=== PATIENT | male | born 1940 | race Caucasian/White ===

== ENCOUNTER 2018-07-06 16:06 | Inpatient (IN) ==
[2018-07-06] MEDS ORDERED: OXYCODONE Oral CONC 10 MG/0.5 ML ORAL.SYG SL PRN (17:45)
[2018-07-06] MEDS ORDERED: Albuterol Neb 1.25 MG/3 ML VIAL IH PRN (17:45)
[2018-07-06] MEDS ORDERED: Ondansetron ODT 4 MG TAB.RAPDIS SL ONE (18:36)
[2018-07-06] MEDS: Furosemide 40 MG TABLET PO SCH (18:40)
[2018-07-06] MEDS: *HR* Warfarin 5 MG TABLET PO SCH (18:40)
[2018-07-06] MEDS: Metoprolol XL (24 HR) Succ 50 MG TAB.ER.24H PO SCH (20:12)
[2018-07-06] MEDS: Sulfamethoxazole/Trimeth DS 1 EACH TABLET PO SCH (20:12)
[2018-07-06] MEDS: Ipratropium/Albuterol Neb 3 ML IH SCH (20:17)
[2018-07-06] MEDS: Budesonide/Formoterol 160/4.5 1 PUFF INH IH SCH (20:17)
[2018-07-06] MEDS: Melatonin 3 MG TABLET PO PRN (20:51)
[2018-07-06] MEDS ORDERED: NON-FORMULARY MEDICATION 1 EACH EACH (Oxygen [Oxygen] 2 L) NS SCH (21:00)
[2018-07-06] MEDS: Nystatin POWDER 30 GM BOTTLE TP SCH (21:08)
[2018-07-06] MEDS: Ipratropium Neb 0.5 MG NEBULIZER IH SCH (22:24)
[2018-07-06] MEDS: *HR* OxyCODONE/APAP 5/325 TABLET PO PRN (22:46)
[2018-07-07] MEDS: Ipratropium/Albuterol Neb 3 ML IH SCH ×4 (00:23→12:24)
[2018-07-07] MEDS: Ipratropium Neb 0.5 MG NEBULIZER IH SCH ×2 (04:22→08:32)
[2018-07-07] MEDS: *HR* OxyCODONE/APAP 5/325 TABLET PO PRN (06:30)
[2018-07-07] MEDS: Budesonide/Formoterol 160/4.5 1 PUFF INH IH SCH ×2 (08:24→21:42)
[2018-07-07] MEDS: Tiotropium 18 MCG inhalation IH SCH (08:25)
[2018-07-07] MEDS: *HR* Glimepiride 2 MG TABLET PO SCH ×2 (08:57→11:04)
[2018-07-07] MEDS: Diltiazem CD (24hr) 180 MG CAPSULE PO SCH ×2 (08:57→09:15)
[2018-07-07] MEDS: Metoprolol XL (24 HR) Succ 50 MG TAB.ER.24H PO SCH ×3 (08:57→21:47)
[2018-07-07] MEDS: Ondansetron ODT 4 MG TAB.RAPDIS SL PRN (08:57)
[2018-07-07] MEDS: *HR* Metformin 500 MG TABLET PO SCH ×3 (08:57→17:19)
[2018-07-07] MEDS: Sulfamethoxazole/Trimeth DS 1 EACH TABLET PO SCH ×2 (08:57→21:47)
[2018-07-07] MEDS: Finasteride 5 MG TABLET PO SCH (08:58)
[2018-07-07] MEDS: Furosemide 40 MG TABLET PO SCH ×3 (08:58→17:11)
[2018-07-07] MEDS ORDERED: Aspirin Enteric Coated 81 MG Tablet PO SCH (09:00)
[2018-07-07] MEDS: Nystatin POWDER 30 GM BOTTLE TP SCH ×2 (11:03→21:48)
--- NOTE | 2018-07-07 11:26 | Internal Med History&Physical ---
Date of Encounter: 07/07/18 Time of Encounter: 10:55 Assessment and Plan (1) Pneumonia of both lower lobes Current visit: No Status: Acute Continue Bactrim DS through 07/13/2018. Add lactobacillus. Qualifiers: Pneumonia type: due to unspecified organism Qualified Code(s): J18.1 - Lobar pneumonia, unspecified organism (2) HTN (hypertension) Current visit: No Status: Chronic Continue Toprol and Cardizem and monitor blood pressure. Qualifiers: Hypertension type: essential hypertension Qualified Code(s): I10 - Essential (primary) hypertension (3) Atrial fibrillation Current visit: No Status: Chronic Continue Coumadin and monitor PT/INR. Qualifiers: Atrial fibrillation type: chronic Qualified Code(s): I48.2 - Chronic atrial fibrillation (4) CKD (chronic kidney disease) stage 3, GFR 30-59 ml/min Current visit: No Status: Chronic Monitor renal indices. (5) Chronic diastolic heart failure Current visit: No Status: Chronic Continue Toprol and Lasix. (6) T2DM (type 2 diabetes mellitus) Current visit: No Status: Chronic Hemoglobin A1c was 5.6% on 05/24/2018. Continue Amaryl and Glucophage and do Accu-Cheks with SSI. Qualifiers: Diabetes mellitus detention insulin use: with study director use Diabetes mellitus complication status: with kidney complications Diabetes mellitus complication detail: with chronic kidney disease Chronic kidney disease stage: stage 3 (moderate) Qualified Code(s): E11.22 - Type 2 diabetes mellitus with diabetic chronic kidney disease; N18.3 - Chronic kidney disease, stage 3 (moderate); Z79.4 - rn rehab (current) use of insulin (7) Small bowel obstruction Current visit: No Status: Acute Status post surgical intervention. Continue wound VAC and monitoring. (8) Anemia Current visit: No Status: Chronic Anemia testing 06/30/2018 showed iron 26, transferrin saturation 14%, and transferrin 129. Will check B12 and folate in a.m. Start ferrous sulfate with ascorbic acid. Qualifiers: Anemia type: unspecified type Qualified Code(s): D64.9 - Anemia, unspecifi ed Internal Medicine - H&P: HPI Chief complaint: Small bowel obstruction, chronic AF, diastolic heart failure Admitted From: Hospital to Hospital Transfer Plans for Post Hospital Care: Home History of present illness: Mr. Cardoso is a 78 year old male who was hospitalized at [facility] June 12-July 06 after presenting with dyspnea with acute on chronic diastolic heart failure and AF with RVR. He was found to have evidence of small bowel obstruction and underwent exploratory celiotomy with partial small bowel resection with anastomosis and primary repair of incisional/umbilical hernia. He underwent additional surgery June 26 for evidence of recurrent small bowel obstruction and had revision of ileocolonic anastomosis. A wound VAC was placed. Chronic AF was treated with anticoagulants. RVR resolved with medication. He was found to have pneumonia and underwent bronchoscopy with mucous plugs suctioned. BAL was done and cytology sent with report pending at time of discharge. He will continue with Bactrim for 7 days in swing bed for stenotrophomonas on sputum culture. Past Med Surg Social Fam HX - Past Medical History Medical history: asthma, atrial fibrillation, cancer, CHF, COPD, hypertension Additional medical history: Renal carcinoma Psychiatric history: no psych history - Past Surgical History Surgical History: appendectomy, cholecystectomy, other Additional surgical history: left kidney removed. lipomas removed from back - Social History Smoking Status: Former smoker Smokeless Tobacco Status: No Alcohol use: none Drug use: none - Family History Brother Living Status: Hx Family Cardiac Disorders: Yes (60yo [place]) Father Living Status: Hx Family Cardiac Disorders: Yes Hx Family Cancer: Yes Hx Family Neurologic Disorders: Yes (parkinsons) Mother Living Status: Hx Family Cardiac Disorders: Yes Hx Family Respiratory Disorders: Yes (asthma) Hx Family Cancer: Yes Hx Family GI Disorders: No Hx Family Endocrine Disorder: No Hx Family Neuromuscular Disorders: No Hx Family Neurologic Disorders: No Hx Family HEENT Disorders: No Hx Family Autoimmune Disorders: No Internal Medicine - H&P: Meds Albuterol Sulfate [Proair Hfa] 2 puff IH Q4H PRN #0 07/10/15 [History] Finasteride [Proscar] 5 mg PO DAILY #0 07/10/15 [History] Oxygen 2 l NS HS 11/17/16 [History] Budesonide/Formoterol 160/4.5 [Symbicort 160/4.5] 2 puff IH BIDR #2 hfa.aer.ad 11/20/16 [Rx] Aspirin Enteric Coated [Aspirin EC] 81 mg PO DAILY #30 05/12/17 [Rx] Atorvastatin [Lipitor] 40 mg PO HS #30 tab 05/12/17 [Rx] Tiotropium [Spiriva] 18 mcg IH 0700 #30 capsule 08/01/17 [Rx] Albuterol Neb [AccuNeb] 1.25 mg IH Q6H PRN 02/16/18 [History] Diltiazem CD (24hr) [Cardizem CD] 360 mg PO DAILY #30 cap.er.24h 03/20/18 [Rx] Furosemide [Lasix] 40 mg PO BID #28 tablet 03/20/18 [Rx] Glimepiride [Amaryl] 2 mg PO 0800 30 Days #60 tablet 04/15/18 [Rx] metFORMIN [Glucophage] 500 mg PO BIDWM 30 Days #60 tablet 04/15/18 [Rx] Warfarin Sodium 5 mg PO 1800 04/24/18 [History] Sennosides/Docusate Sodium [Senna Plus] 2 each PO BID PRN #60 tablet 06/08/18 [Rx] Ipratropium Neb [Atrovent Neb] 0.5 mg IH [id number] #120 inhsol 06/10/18 [Rx] Metoprolol XL (24 HR) Succ [Toprol Xl] 50 mg PO BID #60 tab.er.24h 06/10/18 [Rx] Polyethylene Glycol 3350 [MiraLAX] 17 gm PO DAILY #30 powd.pack 06/10/18 [Rx] Tamsulosin [Flomax] 0.4 mg PO DAILY #30 capsule 06/10/18 [Rx] Ipratropium/Albuterol Neb [Duoneb] 3 ml IH [id number] inhsol 07/06/18 [Rx] Nystatin POWDER [Nystop] 1 appl TP BID bottle 07/06/18 [Rx] OXYCODONE Oral CONC [Oxycodone Oral Conc] 10 mg SL Q6HR PRN 5 Days #10 oral.syg 07/06/18 [Rx] Omeprazole [PriLOSEC] 20 mg PO DAILY@0630 30 Days #30 capsule.dr 07/06/18 [Rx] OxyCODONE/APAP 5/325 [Percocet 5/325 MG] 1 each PO Q4HR PRN 5 Days #10 tablet 07/06/18 [Rx] Sulfamethoxazole/Trimeth DS [Bactrim Ds] 1 each PO BID 7 Days #14 tablet 07/06/18 [Rx] Allergy/AdvReac Type Severity Reaction Status Date / Time No Known Allergies Allergy Verified 04/24/18 13:29 All Systems PM: A 10-system review of systems was performed and is negative for pertinent findings except as documented above in the HPI. Review of systems: Gen.: His weight has decreased from 112 kg on 07/11/2015 to 109.1 kg on admission to [facility] swing bed 07/06/2018. Cardiovascular: He has history of hypertension and chronic atrial fibrillation. Echocardiogram 05/31/2018 showed LVEF of 50-55%. Previous echocardiogram on 02/22/2018 showed LVEF of 50% with indeterminate diastolic function due to atrial fibrillation. The interventricular septum and posterior wall thickness measurements were 1.1 cm each. There was LAE at 4.40 cm. Mild regurgitation was noted. LHC 04/04/2017 showed nonobstructive CAD with 15% stenosis in LMCA, 25% stenosis in proximal LAD, 30% stenosis in proximal circumflex, 40% stenosis in ramus, 30% stenosis in proximal RCA, 25% stenosis in mid RCA, and 25% stenosis in distal RCA. LVEF was reported to be 45% at time of heart cath. He denies DVT or pulmonary embolus. Respiratory: He smoked from age [age] up to 1-1/2 packs per day. He has a diagnosis COPD and uses oxygen at bedtime and when necessary during the daytime. He thinks he was tested for JEFFY several years ago but does not use CPAP/BiPAP. GI: He had remote cholecystectomy. He had 2 recent surgery for small bowel obstruction as per history of present illness. He denies other disorders of his liver or exocrine pancreas : He had renal cell cancer with left nephrectomy approximately 2011. He believes he is cancer free. He has BPH. He denies other kidney or bladder disorders. Neurologic: He denies large distribution strokes or seizures. Endocrine: He has diagnoses of DM 2 but he denies having this. He is on metformin and Amaryl. He denies hyperlipidemia. TSH was suppressed at 0.133 on 06/02/2018 but free T4 and free T3 were normal. Hematology/oncology: He had renal cell cancer as per above. He denies other internal malignancies. He has anemia with testing 06/30/2018 showing iron 26, transferrin saturation 14%, and transferrin 129. Psychiatric: He denies anxiety depression or other mental health issues [place] skeletal: He denies arthritis gout or other bone joint or muscle disorders. - Constitutional Vitals: Temp Pulse Resp BP Pulse Ox 99 F 108 16 79/48 97 07/07/18 07:00 07/07/18 07:00 07/07/18 08:25 07/07/18 07:00 07/07/18 08:25 Exam: Gen.: He is a well-developed overweight male lying in bed who appears in no acute distress HEENT: Head is atraumatic and normocephalic. Eyes: EOMI. There is no scleral icterus. Mouth: Mucosa is moist. Neck: Supple and nontender. There is no thyromegaly or adenopathy noted. Heart: Irregularly irregular with rate approximately 100/m. Lungs: No wheezes or crackles are heard. Abdomen: A wound VAC is attached to the anterior abdominal wall. The abdomen is nontender to palpation. No masses or guarding are noted. Extremities: There is trace to 1+ edema of the left leg and no edema of the right leg. Dorsalis pedis and posterior tibial pulses are trace palpable bilaterally. He has mild DJD changes of his hands. Neurologic: Mental status: He is talkative and a fair to good historian. He does not remember some details of his history. Cranial nerves: Smile is symmetric. Forehead wrinkles bilaterally. Tongue protrudes midline. EOMI. Motor: There is no pronator drift. He has minimal cogwheeling and rigidity on passive range of motion of his elbows. Cerebellar: Finger to nose is intact bilaterally. Skin: Warm and dry. He has seborrheic dermatitis of his face. He has many subcutaneous lipomas in his arms and some on his abdominal wall.
[2018-07-07] MEDS ORDERED: Albuterol Neb 1.25 MG/3 ML VIAL IH PRN (12:27)
[2018-07-07] MEDS: *HR* Warfarin 5 MG TABLET PO SCH (17:11)
[2018-07-07] MEDS: Sennosides/Docusate Sodium TABLET PO PRN (21:46)
[2018-07-07] MEDS: Lactobacillus 1 EACH CAP.SPRINK PO SCH (21:46)
[2018-07-08 04:57] LABS: Basophils % 0.4 %; Eosinophils # 0.1 K/mcL (0.0-0.6); Eosinophils % 1.1 %; Hematocrit 26.6 % (37.5-50.1); Hemoglobin 8.5 g/dL (12.9-16.9); Immature Granulocytes % 4.6 % (0-4); Lymphocytes # 0.9 K/mcL (0.6-4.6); Lymphocytes % 8.4 %; Mean Platelet Volume 10.7 fL (9.4-12.4); Monocytes # 0.6 K/mcL (0.0-1.3); Monocytes % 5.7 %; Neutrophils # 8.3 K/mcL (1.6-8.9); Nucleated Red Blood Cells 0.2 /100 WBC (0); Platelet Count 199 K/mcL (140-400); Red Blood Count 2.83 M/mcL (4.19-5.50); Red Cell Distribution Width 15.2 % (11.5-14.5); Segmented Neutrophils % 79.8 %
[2018-07-08 05:18] LABS: Prothrombin Time 34.2 Seconds (9.4-12.1)
[2018-07-08 05:22] LABS: BUN/Creatinine Ratio 8 (6-26); Blood Urea Nitrogen 13 mg/dL (8-23); Calcium 8.2 mg/dL (8.6-10.3); Carbon Dioxide 30 mEq/L (23-29); Chloride 97 mEq/L (98-107); Glucose 77 mg/dL (70-105); Osmolality,Calculated 277 (280-300); Potassium 4.5 mEq/L (3.5-5.1); Sodium 134 mEq/L (136-145); eGFR For Non-African Americans 40 (> 60)
[2018-07-08] MEDS ORDERED: D5% in Water 1,000 ML IVC PRN (06:05)
[2018-07-08] MEDS ORDERED: Dextrose Gel 15 GM/37.5 ML TUBE PO PRN ×2 (06:05)
[2018-07-08] MEDS ORDERED: *HR* Dextrose 50 % in Water (Syg) 50 ML SYRINGE IVP PRN (06:05)
[2018-07-08] MEDS: Ascorbic Acid 500 MG TABLET PO SCH (06:49)
[2018-07-08] MEDS: Ondansetron ODT 4 MG TAB.RAPDIS SL PRN ×3 (06:53→21:34)
[2018-07-08] MEDS ORDERED: *HR* OxyCODONE Oral Soln 5 MG/5 ML UD.LIQ PO PRN (08:30)
[2018-07-08] MEDS: Insulin LISPRO 300 UNITS/3 ML VIAL SQ SCH ×4 (08:36→21:36)
[2018-07-08] MEDS: Diltiazem CD (24hr) 180 MG CAPSULE PO SCH (08:37)
[2018-07-08] MEDS: *HR* Metformin 500 MG TABLET PO SCH ×2 (08:37→17:24)
[2018-07-08] MEDS: Sulfamethoxazole/Trimeth DS 1 EACH TABLET PO SCH ×2 (08:38→21:34)
[2018-07-08] MEDS: Lactobacillus 1 EACH CAP.SPRINK PO SCH ×2 (08:38→21:34)
[2018-07-08] MEDS: Nystatin POWDER 30 GM BOTTLE TP SCH ×2 (08:39→21:39)
[2018-07-08] MEDS: Finasteride 5 MG TABLET PO SCH (08:40)
[2018-07-08] MEDS: Budesonide/Formoterol 160/4.5 1 PUFF INH IH SCH ×2 (09:12→22:04)
[2018-07-08] MEDS: Tiotropium 18 MCG inhalation IH SCH ×2 (09:12→09:18)
[2018-07-08 10:23] LABS: Ferritin > 1500 ng/mL (20-250)
--- NOTE | 2018-07-08 11:16 | Internal Med Progress Note ---
Date of Encounter: 07/08/18 Time of Encounter: 11:10 - Assessment and plan (1) Pneumonia of both lower lobes Current Visit: No Status: Acute Assessment and plan: July 08. Continue Bactrim DS with lactobacillus through 07/13/2018. Qualifiers: Pneumonia type: due to unspecified organism Qualified Code(s): J18.1 - Lobar pneumonia, unspecified organism (2) HTN (hypertension) Current Visit: No Status: Chronic Assessment and plan: July 08. He has hypotension. Cardizem will be held. Lanoxin will be started for rate control. Qualifiers: Hypertension type: essential hypertension Qualified Code(s): I10 - Essenti al (primary) hypertension (3) Atrial fibrillation Current Visit: No Status: Chronic Assessment and plan: July 08. Continue Coumadin but reduce dose from 5 mg daily to 4 mg daily since INR is now 3.0. Qualifiers: Atrial fibrillation type: chronic Qualified Code(s): I48.2 - Chronic atrial fibrillation (4) CKD (chronic kidney disease) stage 3, GFR 30-59 ml/min Current Visit: No Status: Chronic Assessment and plan: July 08. Monitor renal indices. (5) Chronic diastolic heart failure Current Visit: No Status: Chronic Assessment and plan: July 08. Continue Lasix. Start Lanoxin. (6) T2DM (type 2 diabetes mellitus) Current Visit: No Status: Chronic Assessment and plan: July 08. Hemoglobin A1c was 5.6% on 05/24/2018. Continue Amaryl and Gl ucophage and do Accu-Cheks with SSI. Qualifiers: Diabetes mellitus care home insulin use: with terminal block assembler use Diabetes mellitus complication status: with kidney complications Diabetes mellitus complication detail: with chronic kidney disease Chronic kidney disease stage: stage 3 (moderate) Qualified Code(s): E11.22 - Type 2 diabetes mellitus with diabetic chronic kidney disease; N18.3 - Chronic kidney disease, stage 3 (moderate); Z79.4 - superintendent container terminal (current) use of insulin (7) Small bowel obstruction Current Visit: No Status: Acute Assessment and plan: July 08. Status post surgical intervention. Continue wound VAC and monitoring. (8) Anemia Current Visit: No Status: Chronic Assessment and plan: July 08. Anemia testing 06/30/2018 showed iron 26, transferrin saturation 14%, and transferrin 129. Labs today show ferritin > 1500, B12 710, and folate 14.0. Continue trial of ferrous sulfate with ascorbic acid and monitor CBC. Qualifiers: Anemia type: unspecified type Qualified Code(s): D64.9 - Anemia, unspecified - Subjective Interval history: July 08. He has no new complaints and feels well. - Constitutional Vitals: Temp Pulse Resp BP Pulse Ox 99.7 F H 86 16 78/44 95 07/08/18 06:28 07/08/18 06:28 07/08/18 09:13 07/08/18 06:28 07/08/18 09:13 Exam: He is sitting on the side of bed participating in therapy. His affect is bright and cheerful. Medium yellow urine is draining in the Mancini bag. I reviewed his medications and lab results. Internal Medicine: Result - Labs CBC & Chem 7: 07/08/18 04:48 07/08/18 04:48 Labs: Short CBC 07/08/18 Range/Units 04:48 WBC 10.4 (4.3-11.1) K/mcL Hgb 8.5 L (12.9-16.9) g/dL Hct 26.6 L (37.5-50.1) % Plt Count 199 (140-400) K/mcL Neutrophils # 8.3 (1.6-8.9) K/mcL BMP 07/08/18 04:48 Sodium 134 L Potassium 4.5 Chloride 97 L Carbon Dioxide 30 H BUN 13 Creatinine 1.69 H Glucose 77 Calcium 8.2 L - ABG Interpretation ABG results: PT/INR, D-dimer PT 34.2 Seconds (9.4-12.1) H 07/08/18 04:48 Consult Discharge Plan - Plan Referrals: Booker Atkins MD [Primary Care Provider] - 1 week
[2018-07-08] MEDS: *HR* Glimepiride 2 MG TABLET PO SCH (12:26)
[2018-07-08] MEDS: Metoprolol XL (24 HR) Succ 50 MG TAB.ER.24H PO SCH ×2 (12:27→21:39)
[2018-07-08] MEDS: Furosemide 40 MG TABLET PO SCH ×2 (12:27→17:24)
[2018-07-08] MEDS ORDERED: *HR* Warfarin 5 MG TABLET ONE (16:29)
[2018-07-08] MEDS: *HR* Warfarin 2 MG TABLET PO SCH (17:23)
[2018-07-08] MEDS: Melatonin 3 MG TABLET PO PRN (21:34)
[2018-07-08] MEDS: Albuterol 2.5 MG/3 ML NEBULIZER IH PRN (22:03)
[2018-07-09] MEDS: Ascorbic Acid 500 MG TABLET PO SCH (06:47)
[2018-07-09] MEDS: *HR* Metformin 500 MG TABLET PO SCH ×2 (08:10→16:29)
[2018-07-09] MEDS: Finasteride 5 MG TABLET PO SCH (08:11)
[2018-07-09] MEDS: *HR* Digoxin 0.125 MG TABLET PO SCH (08:11)
[2018-07-09] MEDS: Lactobacillus 1 EACH CAP.SPRINK PO SCH ×2 (08:11→21:45)
[2018-07-09] MEDS: Metoprolol XL (24 HR) Succ 50 MG TAB.ER.24H PO SCH (08:11)
[2018-07-09] MEDS: Furosemide 40 MG TABLET PO SCH ×2 (08:12→16:29)
[2018-07-09] MEDS: Sulfamethoxazole/Trimeth DS 1 EACH TABLET PO SCH ×2 (08:12→21:45)
[2018-07-09] MEDS: *HR* Glimepiride 2 MG TABLET PO SCH (08:17)
[2018-07-09] MEDS: Insulin LISPRO 300 UNITS/3 ML VIAL SQ SCH ×4 (08:17→21:44)
[2018-07-09] MEDS: Nystatin POWDER 30 GM BOTTLE TP SCH ×2 (08:18→21:00)
[2018-07-09] MEDS: Tiotropium 18 MCG inhalation IH SCH (10:32)
[2018-07-09] MEDS: Budesonide/Formoterol 160/4.5 1 PUFF INH IH SCH ×2 (10:33→22:12)
--- NOTE | 2018-07-09 12:35 | Internal Med Progress Note ---
Date of Encounter: 07/09/18 Time of Encounter: 12:25 - Assessment and plan (1) Pneumonia of both lower lobes Current Visit: No Status: Acute Assessment and plan: July 08. Continue Bactrim DS with lactobacillus through 07/13/2018. Qualifiers: Pneumonia type: due to unspecified organism Qualified Code(s): J18.1 - Lobar pneumonia, unspecified organism (2) HTN (hypertension) Current Visit: No Status: Chronic Assessment and plan: July 08. He has hypotension. Cardizem will be held. Lanoxin will be started for rate control. July 09. Hypotension resolved. Remain off Cardizem. Continue Lanoxin and lower dose metoprolol. Qualifiers: Hypertension type: essential hypertension Qualified Code(s): I10 - Esse ntial (primary) hypertension (3) Atrial fibrillation Current Visit: No Status: Chronic Assessment and plan: July 08. Continue Coumadin but reduce dose from 5 mg daily to 4 mg daily since INR is now 3.0. Qualifiers: Atrial fibrillation type: chronic Qualified Code(s): I48.2 - Chronic atrial fibrillation (4) CKD (chronic kidney disease) stage 3, GFR 30-59 ml/min Current Visit: No Status: Chronic Assessment and plan: July 08. Monitor renal indices. (5) Chronic diastolic heart failure Current Visit: No Status: Chronic Assessment and plan: July 08. Continue Lasix. Start Lanoxin. (6) T2DM (type 2 diabetes mellitus) Current Visit: No Status: Chronic Assessment and plan: July 08. Hemoglobin A1c was 5.6% on 05/24/2018. Continue Amaryl and Glucophage and do Accu-Cheks with SSI. July 09. Accu-Cheks borderline low at times. Decrease Amaryl. Qualifiers: Diabetes mellitus retirement insulin use: with retirement use Diabetes mellitus complication status: with kidney complications Diabetes mellitus complication detail: with chronic kidney disease Chronic kidney disease stage: stage 3 (moderate) Qualified Code(s): E11.22 - Type 2 diabetes mellitus with diabetic chronic kidney disease; N18.3 - Chronic kidney disease, stage 3 (moderate); Z79.4 - [facility]DC (current) use of insulin (7) Small bowel obstruction Current Visit: No Status: Acute Assessment and plan: July 08. Status post surgical intervention. Continue wound VAC and monitoring. (8) Anemia Current Visit: No Status: Chronic Assessment and plan: July 08. Anemia testing 06/30/2018 showed iron 26, transferrin saturation 14%, and transferrin 129. Labs today show ferritin > 1500, B12 710, and folate 14.0. Continue trial of ferrous sulfate with ascorbic acid and monitor CBC. Qualifiers: Anemia type: unspecified type Qualified Code(s): D64.9 - Anemia, unspecified (9) Low vitamin D level Current Visit: Yes Status: Acute Assessment and plan: Vitamin D level low at 12. Start vitamin D supplement. - Subjective Interval history: July 08. He has no new complaints and feels well. July 09. He has no new complaints. He denies pain or dyspnea. - Constitutional Vitals: Temp Pulse Resp BP Pulse Ox 97.6 F 106 14 109/72 96 07/09/18 10:19 07/09/18 10:19 07/09/18 10:37 07/09/18 10:19 07/09/18 10:37 Exam: He is resting comfortably in bed and appears in no acute distress. His affect is overall cheerful. Extremities show no edema. Reviewed his medications and lab results. Internal Medicine: Result - Labs CBC & Chem 7: 07/08/18 04:48 07/08/18 04:48 - ABG Interpretation ABG results: PT/INR, D-dimer PT 34.2 Seconds (9.4-12.1) H 07/08/18 04:48 Consult Discharge Plan - Plan Referrals: Booker Atkins MD [Primary Care Provider] - 1 week
[2018-07-09] MEDS: *HR* Warfarin 2 MG TABLET PO SCH (16:33)
[2018-07-09] MEDS: Albuterol 2.5 MG/3 ML NEBULIZER IH PRN (22:12)
[2018-07-09] MEDS: Melatonin 3 MG TABLET PO PRN (23:55)
[2018-07-10] MEDS: Ascorbic Acid 500 MG TABLET PO SCH (07:00)
[2018-07-10] MEDS: Insulin LISPRO 300 UNITS/3 ML VIAL SQ SCH ×4 (08:34→20:51)
[2018-07-10] MEDS: Sulfamethoxazole/Trimeth DS 1 EACH TABLET PO SCH ×2 (08:36→20:50)
[2018-07-10] MEDS: Furosemide 40 MG TABLET PO SCH ×2 (08:37→17:17)
[2018-07-10] MEDS: *HR* Glimepiride 2 MG TABLET PO SCH (08:38)
[2018-07-10] MEDS: Metoprolol XL (24 HR) Succ 50 MG TAB.ER.24H PO SCH (08:39)
[2018-07-10] MEDS: *HR* Metformin 500 MG TABLET PO SCH ×2 (08:39→17:17)
[2018-07-10] MEDS: *HR* Digoxin 0.125 MG TABLET PO SCH (08:39)
[2018-07-10] MEDS: Lactobacillus 1 EACH CAP.SPRINK PO SCH ×2 (08:40→20:50)
[2018-07-10] MEDS: Finasteride 5 MG TABLET PO SCH (08:41)
[2018-07-10] MEDS: Cholecalciferol (D-3) 1,000 UNIT TABLET PO SCH (08:45)
[2018-07-10] MEDS: Nystatin POWDER 30 GM BOTTLE TP SCH ×2 (10:18→20:51)
[2018-07-10] MEDS: Tiotropium 18 MCG inhalation IH SCH (10:33)
[2018-07-10] MEDS: Budesonide/Formoterol 160/4.5 1 PUFF INH IH SCH ×2 (10:34→22:44)
--- NOTE | 2018-07-10 12:41 | Internal Med Progress Note ---
Date of Encounter: 07/10/18 Time of Encounter: 12:35 - Assessment and plan (1) Pneumonia of both lower lobes Current Visit: No Status: Acute Assessment and plan: July 08. Continue Bactrim DS with lactobacillus through 07/13/2018. Qualifiers: Pneumonia type: due to unspecified organism Qualified Code(s): J18.1 - Lobar pneumonia, unspecified organism (2) HTN (hypertension) Current Visit: No Status: Chronic Assessment and plan: July 08. He has hypotension. Cardizem will be held. Lanoxin will be started for rate control. July 09. Hypotension resolved. Remain off Cardizem. Continue Lanoxin and lower dose metoprolol. Qualifiers: Hypertension type: essential hypertension Qualified Code(s): I10 - Esse ntial (primary) hypertension (3) Atrial fibrillation Current Visit: No Status: Chronic Assessment and plan: July 08. Continue Coumadin but reduce dose from 5 mg daily to 4 mg daily since INR is now 3.0. July 10. Recheck labs in a.m. Qualifiers: Atrial fibrillation type: chronic Qualified Code(s): I48.2 - Chronic atrial fibrillation (4) CKD (chronic kidney disease) stage 3, GFR 30-59 ml/min Current Visit: No Status: Chronic Assessment and plan: July 08. Monitor renal indices. July 10. Recheck labs in a.m. (5) Chronic diastolic heart failure Current Visit: No Status: Chronic Assessment and plan: July 08. Continue Lasix. Start Lanoxin. (6) T2DM (type 2 diabetes mellitus) Current Visit: No Status: Chronic Assessment and plan: July 08. Hemoglobin A1c was 5.6% on 05/24/2018. Continue Amaryl and Glucophage and do Accu-Cheks with SSI. July 09. Accu-Cheks borderline low at times. Decrease Amaryl. Qualifiers: Diabetes mellitus snf insulin use: with snf use Diabetes mellitus complication status: with kidney complications Diabetes mellitus complication detail: with chronic kidney disease Chronic kidney disease stage: stage 3 (moderate) Qualified Code(s): E11.22 - Type 2 diabetes mellitus with diabetic chronic kidney disease; N18.3 - Chronic kidney disease, stage 3 ( moderate); Z79.4 - correction (current) use of insulin (7) Small bowel obstruction Current Visit: No Status: Acute Assessment and plan: July 08. Status post surgical intervention. Continue wound VAC and monitoring. (8) Anemia Current Visit: No Status: Chronic Assessment and plan: July 08. Anemia testing 06/30/2018 showed iron 26, transferrin saturation 14%, and transferrin 129. Labs today show ferritin > 1500, B12 710, and folate 14.0. Continue trial of ferrous sulfate with ascorbic acid and monitor CBC. July 10. Recheck labs in a.m. Qualifiers: Anemia type: unspecified type Qualified Code(s): D64.9 - Anemia, unspecified (9) Low vitamin D level Current Visit: Yes Status: Acute Assessment and plan: July 09. Vitamin D level low at 12. Start vitamin D supplement. - Subjective Interval history: July 08. He has no new complaints and feels well. July 09. He has no new complaints. He denies pain or dyspnea. July 10. He has no complaints. He feels he is making progress and getting stronger. - Constitutional Vitals: Temp Pulse Resp BP Pulse Ox 98.1 F 100 16 106/70 99 07/10/18 09:04 07/10/18 09:04 07/10/18 10:34 07/10/18 09:04 07/10/18 10:34 Exam: He is resting comfortably in bed and appears in no acute distress. His affect is bright and cheerful. I reviewed his medications and lab results. Internal Medicine: Result - Labs CBC & Chem 7: 07/08/18 04:48 07/08/18 04:48 - ABG Interpretation ABG results: PT/INR, D-dimer PT 34.2 Seconds (9.4-12.1) H 07/08/18 04:48 Consult Discharge Plan - Plan Referrals: Booker Atkins MD [Primary Care Provider] - 1 week
[2018-07-10] MEDS: *HR* Warfarin 2 MG TABLET PO SCH (17:18)
[2018-07-10] MEDS: Melatonin 3 MG TABLET PO PRN (22:00)
[2018-07-10] MEDS: Albuterol 2.5 MG/3 ML NEBULIZER IH PRN (22:44)
[2018-07-11 05:13] LABS: Basophils # 0.1 K/mcL (0.0-0.2); Basophils % 0.7 %; Eosinophils # 0.2 K/mcL (0.0-0.6); Eosinophils % 2.3 %; Hematocrit 26.6 % (37.5-50.1); Hemoglobin 8.4 g/dL (12.9-16.9); Immature Granulocytes % 4.4 % (0-4); Lymphocytes # 1.1 K/mcL (0.6-4.6); Lymphocytes % 14.6 %; Mean Corpuscular HGB Conc 31.6 g/dL (31.6-35.5); Mean Corpuscular Hemoglobin 29.9 pg (28.0-33.3); Mean Corpuscular Volume 94.7 fL (83.0-100.0); Mean Platelet Volume 10.4 fL (9.4-12.4); Monocytes # 0.5 K/mcL (0.0-1.3); Monocytes % 7.4 %; Neutrophils # 5.1 K/mcL (1.6-8.9); Platelet Count 200 K/mcL (140-400); Red Blood Count 2.81 M/mcL (4.19-5.50); Red Cell Distribution Width 15.2 % (11.5-14.5); Segmented Neutrophils % 70.6 %
[2018-07-11 05:25] LABS: Prothrombin Time 51.4 Seconds (9.4-12.1)
[2018-07-11 05:26] LABS: INR 4.6
[2018-07-11 05:35] LABS: Calcium 7.8 mg/dL (8.6-10.3); Digoxin 0.4 ng/mL (0.8-2.0); Magnesium 1.4 mg/dL (1.6-2.6); Potassium 4.1 mEq/L (3.5-5.1)
[2018-07-11 05:53] LABS: Thyroid Stimulating Hormone 3.518 mcIU/mL (0.340-5.600)
[2018-07-11] MEDS: Ascorbic Acid 500 MG TABLET PO SCH (06:00)
[2018-07-11] MEDS: Tiotropium 18 MCG inhalation IH SCH (09:15)
[2018-07-11] MEDS: Budesonide/Formoterol 160/4.5 1 PUFF INH IH SCH ×2 (09:15→21:51)
[2018-07-11] MEDS: Nystatin POWDER 30 GM BOTTLE TP SCH ×2 (09:50→21:00)
[2018-07-11] MEDS: Finasteride 5 MG TABLET PO SCH (09:54)
[2018-07-11] MEDS: Cholecalciferol (D-3) 1,000 UNIT TABLET PO SCH (09:54)
[2018-07-11] MEDS: Magnesium Oxide 400 MG TABLET PO SCH ×2 (09:55→21:19)
[2018-07-11] MEDS: Lactobacillus 1 EACH CAP.SPRINK PO SCH ×2 (09:55→21:19)
[2018-07-11] MEDS: Sulfamethoxazole/Trimeth DS 1 EACH TABLET PO SCH ×2 (09:55→21:19)
[2018-07-11] MEDS: Metoprolol XL (24 HR) Succ 50 MG TAB.ER.24H PO SCH (09:55)
[2018-07-11] MEDS: *HR* Digoxin 0.125 MG TABLET PO SCH (09:55)
[2018-07-11] MEDS: Furosemide 40 MG TABLET PO SCH ×2 (09:56→16:25)
[2018-07-11] MEDS: *HR* Metformin 500 MG TABLET PO SCH ×2 (09:56→16:25)
[2018-07-11] MEDS: Insulin LISPRO 300 UNITS/3 ML VIAL SQ SCH ×4 (09:56→21:19)
[2018-07-11] MEDS: *HR* Glimepiride 2 MG TABLET PO SCH (10:27)
[2018-07-11] MEDS: Warfarin perPT PO SCH (16:23)
[2018-07-11] MEDS: Melatonin 3 MG TABLET PO PRN (21:19)
[2018-07-11] MEDS: Albuterol 2.5 MG/3 ML NEBULIZER IH PRN (21:51)
[2018-07-12] MEDS: Ascorbic Acid 500 MG TABLET PO SCH (06:11)
[2018-07-12] MEDS: Insulin LISPRO 300 UNITS/3 ML VIAL SQ SCH ×4 (07:14→21:25)
[2018-07-12] MEDS: Budesonide/Formoterol 160/4.5 1 PUFF INH IH SCH ×2 (09:21→21:56)
[2018-07-12] MEDS: Tiotropium 18 MCG inhalation IH SCH (09:22)
[2018-07-12] MEDS: *HR* Glimepiride 2 MG TABLET PO SCH (09:48)
[2018-07-12] MEDS: Sulfamethoxazole/Trimeth DS 1 EACH TABLET PO SCH ×2 (09:49→21:25)
[2018-07-12] MEDS: Lactobacillus 1 EACH CAP.SPRINK PO SCH ×2 (09:49→21:25)
[2018-07-12] MEDS: *HR* Metformin 500 MG TABLET PO SCH ×2 (09:49→16:36)
[2018-07-12] MEDS: Furosemide 40 MG TABLET PO SCH ×2 (09:49→16:36)
[2018-07-12] MEDS: *HR* Digoxin 0.125 MG TABLET PO SCH (09:50)
[2018-07-12] MEDS: Magnesium Oxide 400 MG TABLET PO SCH ×2 (09:50→21:25)
[2018-07-12] MEDS: Finasteride 5 MG TABLET PO SCH (09:51)
[2018-07-12] MEDS: Metoprolol XL (24 HR) Succ 50 MG TAB.ER.24H PO SCH (09:51)
[2018-07-12] MEDS: Cholecalciferol (D-3) 1,000 UNIT TABLET PO SCH (09:52)
[2018-07-12] MEDS: Nystatin POWDER 30 GM BOTTLE TP SCH ×2 (09:54→21:25)
--- NOTE | 2018-07-12 13:09 | Internal Med Progress Note ---
Date of Encounter: 07/12/18 Time of Encounter: 13:00 - Assessment and plan (1) Pneumonia of both lower lobes Current Visit: No Status: Acute Assessment and plan: July 08. Continue Bactrim DS with lactobacillus through 07/13/2018. Qualifiers: Pneumonia type: due to unspecified organism Qualified Code(s): J18.1 - Lobar pneumonia, unspecified organism (2) HTN (hypertension) Current Visit: No Status: Chronic Assessment and plan: July 08. He has hypotension. Cardizem will be held. Lanoxin will be started for rate control. July 09. Hypotension resolved. Remain off Cardizem. Continue Lanoxin and lower dose metoprolol. Qualifiers: Hypertension type: essential hypertension Qualified Code(s): I10 - Esse ntial (primary) hypertension (3) Atrial fibrillation Current Visit: No Status: Chronic Assessment and plan: July 08. Continue Coumadin but reduce dose from 5 mg daily to 4 mg daily since INR is now 3.0. July 10. Recheck labs in a.m. July 12. INR was elevated at 4.6 yesterday. Recheck labs in a.m. Qualifiers: Atrial fibrillation type: chronic Qualified Code(s): I48.2 - Chronic atrial fibrillation (4) CKD (chronic kidney disease) stage 3, GFR 30-59 ml/min Current Visit: No Status: Chronic Assessment and plan: July 08. Monitor renal indices. July 10. Recheck labs in a.m. (5) Chronic diastolic heart failure Current Visit: No Status: Chronic Assessment and plan: July 08. Continue Lasix. Start Lanoxin. (6) T2DM (type 2 diabetes mellitus) Current Visit: No Status: Chronic Assessment and plan: July 08. Hemoglobin A1c was 5.6% on 05/24/2018. Continue Amaryl and Glucophage and do Accu-Cheks with SSI. July 09. Accu-Cheks borderline low at times. Decrease Amaryl. July 12. Accu-Cheks satisfactory. Continue present dose Amaryl and metformin. Qualifiers: Diabetes mellitus watermelon inspector insulin use: with long-term use Diabetes mellitus complication status: with kidney complications Diabetes mellitus complication detail: with chronic kidney disease Chronic kidney disease stage: stage 3 (moderate) Qualified Code(s): E11.22 - Type 2 diabetes mellitus with diabetic chronic kidney disease; N18.3 - Chronic kidney disease, stage 3 (moderate); Z79.4 - technician terminal and repeater (current) use of insulin (7) Small bowel obstruction Current Visit: No Status: Acute Assessment and plan: July 08. Status post surgical intervention. Continue wound VAC and monitoring. (8) Anemia Current Visit: No Status: Chronic Assessment and plan: July 08. Anemia testing 06/30/2018 showed iron 26, transferrin saturation 14%, and transferrin 129. Labs today show ferritin > 1500, B12 710, and folate 14.0. Continue trial of ferrous sulfate with ascorbic acid and monitor CBC. July 10. Recheck labs in a.m. Qualifiers: Anemia type: unspecified type Qualified Code(s): D64.9 - Anemia, unspecified (9) Low vitamin D level Current Visit: Yes Status: Acute Assessment and plan: July 09. Vitamin D level low at 12. Start vitamin D supplement. - Subjective Interval history: July 08. He has no new complaints and feels well. July 09. He has no new complaints. He denies pain or dyspnea. July 10. He has no complaints. He feels he is making progress and getting stronger. July 12. He has no new complaints. - Constitutional Vitals: Temp Pulse Resp BP Pulse Ox 98.3 F 98 20 110/72 96 07/12/18 12:56 07/12/18 12:56 07/12/18 12:56 07/12/18 12:56 07/12/18 12:56 Exam: He is resting comfortably in bed and appears in no acute distress. His affect is bright and cheerful. His conversation is appropriate. I reviewed his medications and lab results. Internal Medicine: Result - Labs CBC & Chem 7: 07/11/18 05:03 07/11/18 05:03 - ABG Interpretation ABG results: PT/INR, D-dimer PT 51.4 Seconds (9.4-12.1) H* D 07/11/18 05:03 Consult Discharge Plan - Plan Referrals: Booker Atkins MD [Primary Care Provider] - 1 week
[2018-07-12] MEDS: Warfarin perPT PO SCH (16:34)
[2018-07-12] MEDS: Albuterol 2.5 MG/3 ML NEBULIZER IH PRN (17:44)
[2018-07-12] MEDS: Melatonin 3 MG TABLET PO PRN (21:27)
[2018-07-13] MEDS: Ascorbic Acid 500 MG TABLET PO SCH (05:55)
[2018-07-13 06:06] LABS: Prothrombin Time 23.1 Seconds (9.4-12.1)
[2018-07-13] MEDS: Cholecalciferol (D-3) 1,000 UNIT TABLET PO SCH (08:59)
[2018-07-13] MEDS: Lactobacillus 1 EACH CAP.SPRINK PO SCH (09:00)
[2018-07-13] MEDS: *HR* Glimepiride 2 MG TABLET PO SCH (09:00)
[2018-07-13] MEDS: Magnesium Oxide 400 MG TABLET PO SCH ×2 (09:00→21:21)
[2018-07-13] MEDS: Sulfamethoxazole/Trimeth DS 1 EACH TABLET PO SCH (09:00)
[2018-07-13] MEDS: Metoprolol XL (24 HR) Succ 50 MG TAB.ER.24H PO SCH (09:00)
[2018-07-13] MEDS: *HR* Metformin 500 MG TABLET PO SCH ×2 (09:00→16:59)
[2018-07-13] MEDS: Furosemide 40 MG TABLET PO SCH ×2 (09:00→16:59)
[2018-07-13] MEDS: *HR* Digoxin 0.125 MG TABLET PO SCH (09:00)
[2018-07-13] MEDS: Nystatin POWDER 30 GM BOTTLE TP SCH ×2 (09:01→21:21)
[2018-07-13] MEDS: Insulin LISPRO 300 UNITS/3 ML VIAL SQ SCH ×4 (09:01→21:21)
[2018-07-13] MEDS: Finasteride 5 MG TABLET PO SCH (09:01)
[2018-07-13] MEDS: Budesonide/Formoterol 160/4.5 1 PUFF INH IH SCH ×2 (10:21→21:25)
[2018-07-13] MEDS: Tiotropium 18 MCG inhalation IH SCH (10:23)
[2018-07-13] MEDS: *HR* Warfarin 3 MG TABLET PO SCH (16:59)
[2018-07-14] MEDS: Ascorbic Acid 500 MG TABLET PO SCH (06:39)
[2018-07-14] MEDS: Insulin LISPRO 300 UNITS/3 ML VIAL SQ SCH ×4 (08:38→20:04)
[2018-07-14] MEDS: *HR* Metformin 500 MG TABLET PO SCH ×2 (08:38→17:11)
[2018-07-14] MEDS: Cholecalciferol (D-3) 1,000 UNIT TABLET PO SCH (08:38)
[2018-07-14] MEDS: Magnesium Oxide 400 MG TABLET PO SCH ×2 (08:39→20:03)
[2018-07-14] MEDS: *HR* Glimepiride 2 MG TABLET PO SCH (08:39)
[2018-07-14] MEDS: Furosemide 40 MG TABLET PO SCH ×2 (08:39→17:11)
[2018-07-14] MEDS: Nystatin POWDER 30 GM BOTTLE TP SCH ×2 (08:39→20:04)
[2018-07-14] MEDS: *HR* Digoxin 0.125 MG TABLET PO SCH (08:39)
[2018-07-14] MEDS: Metoprolol XL (24 HR) Succ 50 MG TAB.ER.24H PO SCH (08:39)
[2018-07-14] MEDS: Finasteride 5 MG TABLET PO SCH (08:40)
[2018-07-14] MEDS: Budesonide/Formoterol 160/4.5 1 PUFF INH IH SCH ×2 (09:58→20:20)
[2018-07-14] MEDS: Tiotropium 18 MCG inhalation IH SCH (09:59)
--- NOTE | 2018-07-14 12:45 | Internal Med Progress Note ---
Date of Encounter: 07/14/18 Time of Encounter: 12:38 - Assessment and plan (1) Pneumonia of both lower lobes Current Visit: No Status: Acute Assessment and plan: July 08. Continue Bactrim DS with lactobacillus through 07/13/2018. July 14. Now off antibiotic and probiotic. Continue to monitor. Qualifiers: Pneumonia type: due to unspecified organism Qualified Code(s): J18.1 - Lobar pneumonia, unspecified organism (2) HTN (hypertension) Current Visit: No Status: Chronic Assessment and plan: July 08. He has hypotension. Cardizem will be held. Lanoxin will be started for rate control. July 09. Hypotension resolved. Remain off Cardizem. Continue Lanoxin and lower dose metoprolol. July 14. Blood pressure again borderline low. Reduce metoprolol. Continue Lanoxin. Qualifiers: Hypertension type: essential hypertension Qualified Code(s): I10 - Essential (primary) hypertension (3) Atrial fibrillation Current Visit: No Status: Chronic Assessment and plan: July 08. Continue Coumadin but reduce dose from 5 mg daily to 4 mg daily since INR is now 3.0. July 10. Recheck labs in a.m. July 12. INR was elevated at 4.6 yesterday. Recheck labs in a.m. July 14. Coumadin restarted yesterday a dose of 3 mg daily. Recheck labs in a.m. Qualifiers: Atrial fibrillation type: chronic Qualified Code(s): I48.2 - Chronic atrial fibrillation (4) CKD (chronic kidney disease) stage 3, GFR 30-59 ml/min Current Visit: No Status: Chronic Assessment and plan: July 08. Monitor renal indices. July 10. Recheck labs in a.m. July 14. Recheck labs in a.m. (5) Chronic diastolic heart failure Current Visit: No Status: Chronic Assessment and plan: July 08. Continue Lasix. Start Lanoxin. (6) T2DM (type 2 diabetes mellitus) Current Visit: No Status: Chronic Assessment and plan: July 08. Hemoglobin A1c was 5.6% on 05/24/2018. Continue Amaryl and Glucophage and do Accu-Cheks with SSI. July 09. Accu-Cheks borderline low at times. Decrease Amaryl. July 12. Accu-Cheks satisfactory. Continue present dose Amaryl and metformin. Qualifiers: Diabetes mellitus ammunition components inspector insulin use: with skilled nursing use Diabetes mellitus complication status: with kidney complications Diabetes mellitus complication detail: with chronic kidney disease Chronic kidney disease stage: stage 3 (moderate) Qualified Code(s): E11.22 - Type 2 diabetes mellitus with diabetic chronic kidney disease; N18.3 - Chronic kidney disease, stage 3 (moderate); Z79.4 - user experience researcher (current) use of insulin (7) Small bowel obstruction Current Visit: No Status: Acute Assessment and plan: July 08. Status post surgical intervention. Continue wound VAC and monitoring. (8) Anemia Current Visit: No Status: Chronic Assessment and plan: July 08. Anemia testing 06/30/2018 showed iron 26, transferrin saturation 14 %, and transferrin 129. Labs today show ferritin > 1500, B12 710, and folate 14.0. Continue trial of ferrous sulfate with ascorbic acid and monitor CBC. July 10. Recheck labs in a.m. July 14. Recheck labs in a.m. Qualifiers: Anemia type: unspecified type Qualified Code(s): D64.9 - Anemia, unspecified (9) Low vitamin D level Current Visit: Yes Status: Acute Assessment and plan: July 09. Vitamin D level low at 12. Start vitamin D supplement. July 14. Continue vitamin D supplement (10) Hypomagnesemia Current Visit: No Status: Acute Assessment and plan: July 14. Continue magnesium oxide. Recheck labs in a.m. - Subjective Interval history: July 08. He has no new complaints and feels well. July 09. He has no new complaints. He denies pain or dyspnea. July 10. He has no complaints. He feels he is making progress and getting stronger. July 12. He has no new complaints. July 14. He has no new complaints - Constitutional Vitals: Temp Pulse Resp BP Pulse Ox 99.3 F 67 14 107/64 98 07/14/18 07:00 07/14/18 07:00 07/14/18 09:58 07/14/18 07:00 07/14/18 09:58 Exam: He is resting comfortably in bed and appears in no acute distress. His affect is bright and cheerful. I reviewed his medications and lab results. Internal Medicine: Result - Labs CBC & Chem 7: 07/11/18 05:03 07/11/18 05:03 - ABG Interpretation ABG results: PT/INR, D-dimer PT 23.1 Seconds (9.4-12.1) H D 07/13/18 05:00 Consult Discharge Plan - Plan Referrals: Booker Atkins MD [Primary Care Provider] - 1 week
[2018-07-14] MEDS: *HR* Warfarin 3 MG TABLET PO SCH (17:11)
[2018-07-14] MEDS: Melatonin 3 MG TABLET PO PRN (20:03)
[2018-07-14] MEDS: Albuterol 2.5 MG/3 ML NEBULIZER IH PRN (20:21)
[2018-07-15] MEDS: Ascorbic Acid 500 MG TABLET PO SCH (06:03)
[2018-07-15 06:05] LABS: Basophils % 0.7 %; Eosinophils # 0.2 K/mcL (0.0-0.6); Eosinophils % 3.7 %; Hemoglobin 8.9 g/dL (12.9-16.9); Immature Granulocytes % 1.1 % (0-4); Lymphocytes # 1.2 K/mcL (0.6-4.6); Lymphocytes % 18.9 %; Mean Corpuscular HGB Conc 30.7 g/dL (31.6-35.5); Mean Corpuscular Hemoglobin 29.4 pg (28.0-33.3); Mean Corpuscular Volume 95.7 fL (83.0-100.0); Mean Platelet Volume 10.7 fL (9.4-12.4); Monocytes # 0.5 K/mcL (0.0-1.3); Monocytes % 8.3 %; Neutrophils # 4.1 K/mcL (1.6-8.9); Platelet Count 190 K/mcL (140-400); Red Blood Count 3.03 M/mcL (4.19-5.50); Red Cell Distribution Width 15.2 % (11.5-14.5); Segmented Neutrophils % 67.3 %
[2018-07-15 06:25] LABS: Calcium 8.5 mg/dL (8.6-10.3); Potassium 4.2 mEq/L (3.5-5.1)
[2018-07-15] MEDS: Insulin LISPRO 300 UNITS/3 ML VIAL SQ SCH ×4 (08:00→20:34)
[2018-07-15] MEDS: Budesonide/Formoterol 160/4.5 1 PUFF INH IH SCH ×2 (09:15→22:36)
[2018-07-15] MEDS: Tiotropium 18 MCG inhalation IH SCH (09:16)
[2018-07-15] MEDS: *HR* Glimepiride 2 MG TABLET PO SCH (09:24)
[2018-07-15] MEDS: Furosemide 40 MG TABLET PO SCH ×2 (09:24→16:42)
[2018-07-15] MEDS: *HR* Metformin 500 MG TABLET PO SCH ×2 (09:25→16:42)
[2018-07-15] MEDS: Cholecalciferol (D-3) 1,000 UNIT TABLET PO SCH (09:26)
[2018-07-15] MEDS: Magnesium Oxide 400 MG TABLET PO SCH ×2 (09:26→20:35)
[2018-07-15] MEDS: *HR* Digoxin 0.125 MG TABLET PO SCH (09:26)
[2018-07-15] MEDS: Finasteride 5 MG TABLET PO SCH (09:28)
[2018-07-15] MEDS: Metoprolol XL (24 HR) Succ 50 MG TAB.ER.24H PO SCH (09:28)
[2018-07-15] MEDS: Nystatin POWDER 30 GM BOTTLE TP SCH ×2 (09:50→20:40)
[2018-07-15] MEDS: *HR* Warfarin 3 MG TABLET PO SCH (16:41)
[2018-07-15] MEDS: Melatonin 3 MG TABLET PO PRN (20:35)
[2018-07-15] MEDS: Albuterol 2.5 MG/3 ML NEBULIZER IH PRN (22:36)
[2018-07-16] MEDS: Ascorbic Acid 500 MG TABLET PO SCH (05:32)
[2018-07-16] MEDS: Insulin LISPRO 300 UNITS/3 ML VIAL SQ SCH ×4 (08:58→21:09)
[2018-07-16] MEDS: Budesonide/Formoterol 160/4.5 1 PUFF INH IH SCH ×2 (09:14→21:21)
[2018-07-16] MEDS: Tiotropium 18 MCG inhalation IH SCH (09:14)
[2018-07-16] MEDS: *HR* Metformin 500 MG TABLET PO SCH ×2 (11:21→17:40)
[2018-07-16] MEDS: *HR* Glimepiride 2 MG TABLET PO SCH (11:21)
[2018-07-16] MEDS: Magnesium Oxide 400 MG TABLET PO SCH ×2 (11:22→21:09)
[2018-07-16] MEDS: Furosemide 40 MG TABLET PO SCH ×2 (11:23→17:40)
[2018-07-16] MEDS: Metoprolol XL (24 HR) Succ 50 MG TAB.ER.24H PO SCH (11:23)
[2018-07-16] MEDS: *HR* Digoxin 0.125 MG TABLET PO SCH (11:23)
[2018-07-16] MEDS: Cholecalciferol (D-3) 1,000 UNIT TABLET PO SCH (11:23)
[2018-07-16] MEDS: Nystatin POWDER 30 GM BOTTLE TP SCH ×2 (11:24→21:10)
[2018-07-16] MEDS: Finasteride 5 MG TABLET PO SCH (11:24)
[2018-07-16] MEDS: *HR* Warfarin 3 MG TABLET PO SCH (17:40)
[2018-07-16] MEDS: Melatonin 3 MG TABLET PO PRN (21:09)
[2018-07-16] MEDS: Albuterol 2.5 MG/3 ML NEBULIZER IH PRN (21:21)
[2018-07-17] MEDS: Ascorbic Acid 500 MG TABLET PO SCH (05:36)
[2018-07-17 06:00] LABS: Basophils % 0.6 %; Eosinophils # 0.2 K/mcL (0.0-0.6); Eosinophils % 4.1 %; Hemoglobin 8.4 g/dL (12.9-16.9); Immature Granulocytes % 1.4 % (0-4); Lymphocytes # 1.1 K/mcL (0.6-4.6); Lymphocytes % 21.9 %; Mean Corpuscular HGB Conc 31.1 g/dL (31.6-35.5); Mean Corpuscular Hemoglobin 29.4 pg (28.0-33.3); Mean Corpuscular Volume 94.4 fL (83.0-100.0); Mean Platelet Volume 10.9 fL (9.4-12.4); Monocytes # 0.5 K/mcL (0.0-1.3); Monocytes % 9.5 %; Neutrophils # 3.2 K/mcL (1.6-8.9); Platelet Count 145 K/mcL (140-400); Red Blood Count 2.86 M/mcL (4.19-5.50); Red Cell Distribution Width 14.9 % (11.5-14.5); Segmented Neutrophils % 62.5 %
[2018-07-17 06:08] LABS: INR 1.3
[2018-07-17 06:18] LABS: BUN/Creatinine Ratio 12 (6-26); Blood Urea Nitrogen 13 mg/dL (8-23); Calcium 8.3 mg/dL (8.6-10.3); Carbon Dioxide 31 mEq/L (23-29); Chloride 100 mEq/L (98-107); Glucose 102 mg/dL (70-105); Osmolality,Calculated 284 (280-300); Potassium 3.9 mEq/L (3.5-5.1); Sodium 137 mEq/L (136-145); eGFR For Non-African Americans > 60 (> 60)
[2018-07-17] MEDS: Insulin LISPRO 300 UNITS/3 ML VIAL SQ SCH ×4 (08:05→21:34)
[2018-07-17] MEDS: *HR* Glimepiride 2 MG TABLET PO SCH (08:06)
[2018-07-17] MEDS: *HR* Metformin 500 MG TABLET PO SCH ×2 (08:26→16:25)
[2018-07-17] MEDS: Magnesium Oxide 400 MG TABLET PO SCH (08:27)
[2018-07-17] MEDS: *HR* Digoxin 0.125 MG TABLET PO SCH (08:27)
[2018-07-17] MEDS: Finasteride 5 MG TABLET PO SCH (08:28)
[2018-07-17] MEDS: Cholecalciferol (D-3) 1,000 UNIT TABLET PO SCH (08:31)
[2018-07-17] MEDS: Furosemide 40 MG TABLET PO SCH ×2 (10:22→16:25)
[2018-07-17] MEDS: Metoprolol XL (24 HR) Succ 50 MG TAB.ER.24H PO SCH (10:22)
[2018-07-17] MEDS: Nystatin POWDER 30 GM BOTTLE TP SCH ×2 (10:23→21:58)
[2018-07-17] MEDS: Tiotropium 18 MCG inhalation IH SCH (10:45)
[2018-07-17] MEDS: Budesonide/Formoterol 160/4.5 1 PUFF INH IH SCH ×2 (10:46→22:29)
--- NOTE | 2018-07-17 10:57 | Internal Med Progress Note ---
Date of Encounter: 07/17/18 Time of Encounter: 10:50 - Assessment and plan (1) Pneumonia of both lower lobes Current Visit: No Status: Acute Assessment and plan: July 08. Continue Bactrim DS with lactobacillus through 07/13/2018. July 14. Now off antibiotic and probiotic. Continue to monitor. Qualifiers: Pneumonia type: due to unspecified organism Qualified Code(s): J18.1 - Lobar pneumonia, unspecified organism (2) HTN (hypertension) Current Visit: No Status: Chronic Assessment and plan: July 08. He has hypotension. Cardizem will be held. Lanoxin will be started for rate control. July 09. Hypotension resolved. Remain off Cardizem. Continue Lanoxin and lower dose metoprolol. July 14. Blood pressure again borderline low. Reduce metoprolol. Continue Lanoxin. Qualifiers: Hypertension type: essential hypertension Qualified Code(s): I10 - Essential (primary) hypertension (3) Atrial fibrillation Current Visit: No Status: Chronic Assessment and plan: July 08. Continue Coumadin but reduce dose from 5 mg daily to 4 mg daily since INR is now 3.0. July 10. Recheck labs in a.m. July 12. INR was elevated at 4.6 yesterday. Recheck labs in a.m. July 14. Coumadin restarted yesterday a dose of 3 mg daily. Recheck labs in a.m. July 17. Heart rate generally well controlled. Continue metoprolol and Lanoxin. Increase Coumadin dose back to 5 mg daily since off antibiotics and pro time subtherapeutic. Qualifiers: Atrial fibrillation type: chronic Qualified Code(s): I48.2 - Chronic atrial fibrillation (4) CKD (chronic kidney disease) stage 3, GFR 30-59 ml/min Current Visit: No Status: Chronic Assessment and plan: July 08. Monitor renal indices. July 10. Recheck labs in a.m. July 14. Recheck labs in a.m. July 17. Creatinine decreased to 1.13. Continue present regimen. (5) Chronic diastolic heart failure Current Visit: No Status: Chronic Assessment and plan: July 08. Continue Lasix. Start Lanoxin. July 17. BN peptide improved to 163. Continue present regimen. (6) T2DM (type 2 diabetes mellitus) Current Visit: No Status: Chronic Assessment and plan: July 08. Hemoglobin A1c was 5.6% on 05/24/2018. Continue Amaryl and Glucophage and do Accu-Cheks with SSI. July 09. Accu-Cheks borderline low at times. Decrease Amaryl. July 12. Accu-Cheks satisfactory. Continue present dose Amaryl and metformin. Qualifiers: Diabetes mellitus nursing home insulin use: with manager long term care use Diabetes mellitus complication status: with kidney complications Diabetes mellitus complication detail: with chronic kidney disease Chronic kidney disease stage: stage 3 (moderate) Qualified Code(s): E11.22 - Type 2 diabetes mellitus with diabetic chronic kidney disease; N18.3 - Chronic kidney disease, stage 3 (moderate); Z79.4 - marine oil terminal superintendent (current) use of insulin (7) Small bowel obstruction Current Visit: No Status: Acute Assessment and plan: July 08. Status post surgical intervention. Continue wound VAC and monitoring. (8) Anemia Current Visit: No Status: Chronic Assessment and plan: July 08. Anemia testing 06/30/2018 showed iron 26, transferrin saturation 14%, and transferrin 129. Labs today show ferritin > 1500, B12 710, and folate 14.0. Continue trial of ferrous sulfate with ascorbic acid and monitor CBC. July 10. Recheck labs in a.m. July 14. Recheck labs in a.m. July 17. Hemoglobin slightly decreased to 8.4. Continue ferrous sulfate with ascorbic acid. Qualifiers: Anemia type: unspecified type Qualified Code(s): D64.9 - Anemia, unspecified (9) Low vitamin D level Current Visit: Yes Status: Acute Assessment and plan: July 09. Vitamin D level low at 12. Start vitamin D supplement. July 14. Continue vitamin D supplement (10) Hypomagnesemia Current Visit: No Status: Acute Assessment and plan: July 14. Continue magnesium oxide. Recheck labs in a.m. July 17. Magnesium level 2.2. Decrease dose of magnesium oxide to 400 mg daily. - Subjective Interval history: July 08. He has no new complaints and feels well. July 09. He has no new complaints. He denies pain or dyspnea. July 10. He has no complaints. He feels he is making progress and getting stronger. July 12. He has no new complaints. July 14. He has no new complaints July 17. He has no new complaints and feels improved. - Constitutional Vitals: Temp Pulse Resp BP Pulse Ox 98.6 F 101 19 94/58 99 07/17/18 06:54 07/17/18 08:22 07/17/18 06:54 07/17/18 08:22 07/17/18 08:22 Exam: He is resting comfortably in bed and appears in no acute distress. His affect is bright and cheerful. Extremities show no edema. I reviewed his medications and lab results. Internal Medicine: Result - Labs CBC & Chem 7: 07/17/18 05:35 07/17/18 05:35 Labs: Short CBC 07/17/18 Range/Units 05:35 WBC 5.2 (4.3-11.1) K/mcL Hgb 8.4 L (12.9-16.9) g/dL Hct 27.0 L (37.5-50.1) % Plt Count 145 (140-400) K/mcL Neutrophils # 3.2 (1.6-8.9) K/mcL BMP 07/17/18 05:35 Sodium 137 Potassium 3.9 Chloride 100 Carbon Dioxide 31 H BUN 13 Creatinine 1.13 Glucose 102 Calcium 8.3 L - ABG Interpretation ABG results: PT/INR, D-dimer PT 15.0 Seconds (9.4-12.1) H 07/17/18 05:35 Consult Discharge Plan - Plan Referrals: Booker Atkins MD [Primary Care Provider] - 1 week
[2018-07-17] MEDS: *HR* Warfarin 5 MG TABLET PO SCH (18:08)
[2018-07-18] MEDS: Ascorbic Acid 500 MG TABLET PO SCH (06:20)
[2018-07-18] MEDS: *HR* Glimepiride 2 MG TABLET PO SCH (08:07)
[2018-07-18] MEDS: *HR* Metformin 500 MG TABLET PO SCH ×2 (08:07→18:06)
[2018-07-18] MEDS: Furosemide 40 MG TABLET PO SCH ×2 (08:11→18:06)
[2018-07-18] MEDS: Insulin LISPRO 300 UNITS/3 ML VIAL SQ SCH ×4 (08:11→20:48)
[2018-07-18] MEDS: *HR* Digoxin 0.125 MG TABLET PO SCH (09:55)
[2018-07-18] MEDS: Magnesium Oxide 400 MG TABLET PO SCH (09:56)
[2018-07-18] MEDS: Nystatin POWDER 30 GM BOTTLE TP SCH ×2 (09:57→20:50)
[2018-07-18] MEDS: Finasteride 5 MG TABLET PO SCH (09:59)
[2018-07-18] MEDS: Metoprolol XL (24 HR) Succ 50 MG TAB.ER.24H PO SCH (10:00)
[2018-07-18] MEDS: Cholecalciferol (D-3) 1,000 UNIT TABLET PO SCH (10:01)
[2018-07-18] MEDS: Tiotropium 18 MCG inhalation IH SCH (10:42)
[2018-07-18] MEDS: Budesonide/Formoterol 160/4.5 1 PUFF INH IH SCH ×2 (10:43→23:19)
[2018-07-18] MEDS: *HR* Warfarin 5 MG TABLET PO SCH (18:06)
[2018-07-18] MEDS: Melatonin 3 MG TABLET PO PRN (20:51)
[2018-07-18] MEDS: Albuterol 2.5 MG/3 ML NEBULIZER IH PRN (23:19)
[2018-07-19] MEDS: Ascorbic Acid 500 MG TABLET PO SCH (05:43)
[2018-07-19] MEDS: Insulin LISPRO 300 UNITS/3 ML VIAL SQ SCH ×4 (08:03→20:17)
[2018-07-19] MEDS: *HR* Metformin 500 MG TABLET PO SCH ×2 (08:10→16:42)
[2018-07-19] MEDS: Furosemide 40 MG TABLET PO SCH ×2 (08:16→16:42)
[2018-07-19] MEDS: *HR* Glimepiride 2 MG TABLET PO SCH (08:17)
[2018-07-19] MEDS: *HR* Digoxin 0.125 MG TABLET PO SCH (09:36)
[2018-07-19] MEDS: Magnesium Oxide 400 MG TABLET PO SCH (09:37)
[2018-07-19] MEDS: Nystatin POWDER 30 GM BOTTLE TP SCH ×2 (09:38→20:17)
[2018-07-19] MEDS: Finasteride 5 MG TABLET PO SCH (09:39)
[2018-07-19] MEDS: Cholecalciferol (D-3) 1,000 UNIT TABLET PO SCH (09:40)
[2018-07-19] MEDS: Metoprolol XL (24 HR) Succ 50 MG TAB.ER.24H PO SCH (09:41)
[2018-07-19] MEDS: Budesonide/Formoterol 160/4.5 1 PUFF INH IH SCH ×2 (10:51→22:07)
[2018-07-19] MEDS: Tiotropium 18 MCG inhalation IH SCH (10:51)
[2018-07-19] MEDS: *HR* Warfarin 5 MG TABLET PO SCH (16:42)
[2018-07-19] MEDS: Melatonin 3 MG TABLET PO PRN (20:17)
[2018-07-19] MEDS: Albuterol 2.5 MG/3 ML NEBULIZER IH PRN (22:06)
[2018-07-20] MEDS: Ascorbic Acid 500 MG TABLET PO SCH (05:32)
[2018-07-20 05:54] LABS: Basophils % 0.6 %; Eosinophils # 0.2 K/mcL (0.0-0.6); Eosinophils % 4.3 %; Hematocrit 29.9 % (37.5-50.1); Hemoglobin 9.4 g/dL (12.9-16.9); Immature Granulocytes % 0.6 % (0-4); Lymphocytes # 1.3 K/mcL (0.6-4.6); Lymphocytes % 25.9 %; Mean Corpuscular HGB Conc 31.4 g/dL (31.6-35.5); Mean Corpuscular Hemoglobin 29.5 pg (28.0-33.3); Mean Corpuscular Volume 93.7 fL (83.0-100.0); Monocytes # 0.5 K/mcL (0.0-1.3); Monocytes % 9.8 %; Neutrophils # 2.9 K/mcL (1.6-8.9); Platelet Count 144 K/mcL (140-400); Red Blood Count 3.19 M/mcL (4.19-5.50); Red Cell Distribution Width 14.7 % (11.5-14.5); Segmented Neutrophils % 58.8 %
[2018-07-20 06:09] LABS: BUN/Creatinine Ratio 14 (6-26); Blood Urea Nitrogen 17 mg/dL (8-23); Calcium 8.7 mg/dL (8.6-10.3); Carbon Dioxide 33 mEq/L (23-29); Chloride 101 mEq/L (98-107); Glucose 91 mg/dL (70-105); Osmolality,Calculated 289 (280-300); Potassium 3.9 mEq/L (3.5-5.1); Sodium 139 mEq/L (136-145); eGFR For Non-African Americans 58 (> 60)
[2018-07-20] MEDS: *HR* Glimepiride 2 MG TABLET PO SCH ×2 (07:36→09:56)
[2018-07-20] MEDS: Insulin LISPRO 300 UNITS/3 ML VIAL SQ SCH ×4 (07:36→21:10)
[2018-07-20] MEDS: Magnesium Oxide 400 MG TABLET PO SCH (08:15)
[2018-07-20] MEDS: Metoprolol XL (24 HR) Succ 50 MG TAB.ER.24H PO SCH (08:15)
[2018-07-20] MEDS: *HR* Metformin 500 MG TABLET PO SCH ×2 (08:16→16:55)
[2018-07-20] MEDS: Cholecalciferol (D-3) 1,000 UNIT TABLET PO SCH (08:16)
[2018-07-20] MEDS: Furosemide 40 MG TABLET PO SCH ×2 (08:16→16:55)
[2018-07-20] MEDS: Finasteride 5 MG TABLET PO SCH (08:17)
[2018-07-20] MEDS: Nystatin POWDER 30 GM BOTTLE TP SCH ×2 (08:17→21:12)
[2018-07-20] MEDS: *HR* Digoxin 0.125 MG TABLET PO SCH (08:18)
[2018-07-20] MEDS: Budesonide/Formoterol 160/4.5 1 PUFF INH IH SCH ×2 (14:08→20:05)
[2018-07-20] MEDS: Tiotropium 18 MCG inhalation IH SCH (14:08)
--- NOTE | 2018-07-20 16:52 | Internal Med Progress Note ---
Date of Encounter: 07/20/18 Time of Encounter: 16:30 - Assessment and plan (1) Pneumonia of both lower lobes Current Visit: No Status: Acute Assessment and plan: July 08. Continue Bactrim DS with lactobacillus through 07/13/2018. July 14. Now off antibiotic and probiotic. Continue to monitor. Qualifiers: Pneumonia type: due to unspecified organism Qualified Code(s): J18.1 - Lobar pneumonia, unspecified organism (2) HTN (hypertension) Current Visit: No Status: Chronic Assessment and plan: July 08. He has hypotension. Cardizem will be held. Lanoxin will be started for rate control. July 09. Hypotension resolved. Remain off Cardizem. Continue Lanoxin and lower dose metoprolol. July 14. Blood pressure again borderline low. Reduce metoprolol. Continue Lanoxin. Qualifiers: Hypertension type: essential hypertension Qualified Code(s): I10 - Essential (primary) hypertension (3) Atrial fibrillation Current Visit: No Status: Chronic Assessment and plan: July 08. Continue Coumadin but reduce dose from 5 mg daily to 4 mg daily since INR is now 3.0. July 10. Recheck labs in a.m. July 12. INR was elevated at 4.6 yesterday. Recheck labs in a.m. July 14. Coumadin restarted yesterday a dose of 3 mg daily. Recheck labs in a.m. July 17. Heart rate generally well controlled. Continue metoprolol and Lanoxin. Increase Coumadin dose back to 5 mg daily since off antibiotics and pro time subtherapeutic. July 20. Heart rate remains controlled. Continue metoprolol and Lanoxin at present dose. Recheck PT/INR in a.m. Qualifiers: Atrial fibrillation type: chronic Qualified Code(s): I48.2 - Chronic atrial fibrillation (4) CKD (chronic kidney disease) stage 3, GFR 30-59 ml/min Current Visit: No Status: Chronic Assessment and plan: July 08. Monitor renal indices. July 10. Recheck labs in a.m. July 14. Recheck labs in a.m. July 17. Creatinine decreased to 1.13. Continue present regimen. (5) Chronic diastolic heart failure Current Visit: No Status: Chronic Assessment and plan: July 08. Continue Lasix. Start Lanoxin. July 17. BN peptide improved to 163. Continue present regimen. (6) T2DM (type 2 diabetes mellitus) Current Visit: No Status: Chronic Assessment and plan: July 08. Hemoglobin A1c was 5.6% on 05/24/2018. Continue Amaryl and Glucophage and do Accu-Cheks with SSI. July 09. Accu-Cheks borderline low at times. Decrease Amaryl. July 12. Accu-Cheks satisfactory. Continue present dose Amaryl and metformin. Qualifiers: Diabetes mellitus [facility] insulin use: with [facility] use Diabetes mellitus complication status: with kidney complications Diabetes mellitus complication detail: with chronic kidney disease Chronic kidney disease stage: stage 3 (moderate) Qualified Code(s): E11.22 - Type 2 diabetes mellitus with diabetic chronic kidney disease; N18.3 - Chronic kidney disease, stage 3 (moderate); Z79.4 - penitentiary (current) use of insulin (7) Small bowel obstruction Current Visit: No Status: Acute Assessment and plan: July 08. Status post surgical intervention. Continue wound VAC and monitoring. (8) Anemia Current Visit: No Status: Chronic Assessment and plan: July 08. Anemia testing 06/30/2018 showed iron 26, transferrin saturation 14%, and transferrin 129. Labs today show ferritin > 1500, B12 710, and folate 14.0. Continue trial of ferrous sulfate with ascorbic acid and monitor CBC. July 10. Recheck labs in a.m. July 14. Recheck labs in a.m. July 17. Hemoglobin slightly decreased to 8.4. Continue ferrous sulfate with ascorbic acid. July 20. Hemoglobin improved to 9.4. Continue ferrous sulfate with ascorbic acid. Qualifiers: Anemia type: unspecified type Qualified Code(s): D64.9 - Anemia, unspecifi ed (9) Low vitamin D level Current Visit: Yes Status: Acute Assessment and plan: July 09. Vitamin D level low at 12. Start vitamin D supplement. July 14. Continue vitamin D supplement (10) Hypomagnesemia Current Visit: No Status: Acute Assessment and plan: July 14. Continue magnesium oxide. Recheck labs in a.m. July 17. Magnesium level 2.2. Decrease dose of magnesium oxide to 400 mg daily. July 20. Recheck labs in a.m. (11) Urinary retention Current Visit: Yes Status: Acute Assessment and plan: July 20. Mancini catheter was inserted last week and he was started on Flomax and Proscar. Will trial discontinuation of Mancini catheter. - Subjective Interval history: July 08. He has no new complaints and feels well. July 09. He has no new complaints. He denies pain or dyspnea. July 10. He has no complaints. He feels he is making progress and getting stronger. July 12. He has no new complaints. July 14. He has no new complaints July 17. He has no new complaints and feels improved. July 20. He has no new complaints. - Constitutional Vitals: Temp Pulse Resp BP Pulse Ox 97.1 F L 86 18 106/65 100 07/20/18 07:10 07/20/18 07:10 07/20/18 07:10 07/20/18 07:10 07/20/18 07:10 Exam: He is resting comfortably in bed and appears in no acute distress. His affect is bright and cheerful. Extremities show no edema. I reviewed his medications and lab results. Internal Medicine: Result - Labs CBC & Chem 7: 07/20/18 05:17 07/20/18 05:17 Labs: Short CBC 07/20/18 Range/Units 05:17 WBC 4.9 (4.3-11.1) K/mcL Hgb 9.4 L (12.9-16.9) g/dL Hct 29.9 L (37.5-50.1) % Plt Count 144 (140-400) K/mcL Neutrophils # 2.9 (1.6-8.9) K/mcL BMP 07/20/18 05:17 Sodium 139 Potassium 3.9 Chloride 101 Carbon Dioxide 33 H BUN 17 Creatinine 1.21 Glucose 91 Calcium 8.7 - ABG Interpretation ABG results: PT/INR, D-dimer PT 15.0 Seconds (9.4-12.1) H 07/17/18 05:35 Consult Discharge Plan - Plan Referrals: Booker Atkins MD [Primary Care Provider] - 1 week
[2018-07-20] MEDS: *HR* Warfarin 5 MG TABLET PO SCH (17:02)
[2018-07-20] MEDS: Albuterol 2.5 MG/3 ML NEBULIZER IH PRN (20:04)
[2018-07-20] MEDS: Sennosides/Docusate Sodium TABLET PO PRN (21:11)
[2018-07-21] MEDS: Ascorbic Acid 500 MG TABLET PO SCH (05:58)
[2018-07-21 05:59] LABS: INR 1.8; Prothrombin Time 20.5 Seconds (9.4-12.1)
[2018-07-21 06:07] LABS: BUN/Creatinine Ratio 16 (6-26); Blood Urea Nitrogen 19 mg/dL (8-23); Calcium 8.7 mg/dL (8.6-10.3); Carbon Dioxide 31 mEq/L (23-29); Chloride 103 mEq/L (98-107); Glucose 127 mg/dL (70-105); Magnesium 2.1 mg/dL (1.6-2.6); Osmolality,Calculated 298 (280-300); Potassium 4.1 mEq/L (3.5-5.1); Sodium 142 mEq/L (136-145); eGFR For Non-African Americans > 60 (> 60)
[2018-07-21] MEDS: Insulin LISPRO 300 UNITS/3 ML VIAL SQ SCH ×4 (07:19→21:36)
[2018-07-21] MEDS: *HR* Glimepiride 2 MG TABLET PO SCH (07:22)
[2018-07-21] MEDS: *HR* Metformin 500 MG TABLET PO SCH ×2 (07:22→17:11)
[2018-07-21] MEDS: Furosemide 40 MG TABLET PO SCH ×2 (07:22→17:11)
[2018-07-21] MEDS: *HR* Digoxin 0.125 MG TABLET PO SCH (08:21)
[2018-07-21] MEDS: Metoprolol XL (24 HR) Succ 50 MG TAB.ER.24H PO SCH (08:22)
[2018-07-21] MEDS: Cholecalciferol (D-3) 1,000 UNIT TABLET PO SCH (08:24)
[2018-07-21] MEDS: Magnesium Oxide 400 MG TABLET PO SCH (08:24)
[2018-07-21] MEDS: Finasteride 5 MG TABLET PO SCH (08:24)
[2018-07-21] MEDS: Nystatin POWDER 30 GM BOTTLE TP SCH ×2 (08:25→21:06)
[2018-07-21] MEDS: Tiotropium 18 MCG inhalation IH SCH (11:34)
[2018-07-21] MEDS: Budesonide/Formoterol 160/4.5 1 PUFF INH IH SCH ×2 (11:34→21:37)
[2018-07-21] MEDS: *HR* Warfarin 5 MG TABLET PO SCH (17:11)
[2018-07-21] MEDS: Albuterol 2.5 MG/3 ML NEBULIZER IH PRN (21:37)
[2018-07-22] MEDS: Ascorbic Acid 500 MG TABLET PO SCH (06:16)
[2018-07-22] MEDS: Cholecalciferol (D-3) 1,000 UNIT TABLET PO SCH (09:02)
[2018-07-22] MEDS: *HR* Glimepiride 2 MG TABLET PO SCH (09:02)
[2018-07-22] MEDS: *HR* Digoxin 0.125 MG TABLET PO SCH (09:02)
[2018-07-22] MEDS: *HR* Metformin 500 MG TABLET PO SCH ×2 (09:02→18:01)
[2018-07-22] MEDS: Furosemide 40 MG TABLET PO SCH ×2 (09:02→18:01)
[2018-07-22] MEDS: Magnesium Oxide 400 MG TABLET PO SCH (09:03)
[2018-07-22] MEDS: Metoprolol XL (24 HR) Succ 50 MG TAB.ER.24H PO SCH (09:03)
[2018-07-22] MEDS: Finasteride 5 MG TABLET PO SCH (09:04)
[2018-07-22] MEDS: Insulin LISPRO 300 UNITS/3 ML VIAL SQ SCH ×4 (09:04→20:55)
[2018-07-22] MEDS: Nystatin POWDER 30 GM BOTTLE TP SCH ×2 (09:05→20:56)
[2018-07-22] MEDS: Budesonide/Formoterol 160/4.5 1 PUFF INH IH SCH ×2 (09:35→21:24)
[2018-07-22] MEDS: Tiotropium 18 MCG inhalation IH SCH (09:36)
--- NOTE | 2018-07-22 12:26 | Internal Med Progress Note ---
Date of Encounter: 07/22/18 Time of Encounter: 12:16 - Assessment and plan (1) Pneumonia of both lower lobes Current Visit: No Status: Acute Assessment and plan: July 08. Continue Bactrim DS with lactobacillus through 07/13/2018. July 14. Now off antibiotic and probiotic. Continue to monitor. Qualifiers: Pneumonia type: due to unspecified organism Qualified Code(s): J18.1 - Lobar pneumonia, unspecified organism (2) HTN (hypertension) Current Visit: No Status: Chronic Assessment and plan: July 08. He has hypotension. Cardizem will be held. Lanoxin will be started for rate control. July 09. Hypotension resolved. Remain off Cardizem. Continue Lanoxin and lower dose metoprolol. July 14. Blood pressure again borderline low. Reduce metoprolol. Continue Lanoxin. July 22. Blood pressure overall stable on present dose Toprol. Qualifiers: Hypertension type: essential hypertension Qualified Code(s): I10 - Essential (primary) hypertension (3) Atrial fibrillation Current Visit: No Status: Chronic Assessment and plan: July 08. Continue Coumadin but reduce dose from 5 mg daily to 4 mg daily since INR is now 3.0. July 10. Recheck labs in a.m. July 12. INR was elevated at 4.6 yesterday. Recheck labs in a.m. July 14. Coumadin restarted yesterday a dose of 3 mg daily. Recheck labs in a.m. July 17. Heart rate generally well controlled. Continue metoprolol and Lanoxin. Increase Coumadin dose back to 5 mg daily since off antibiotics and pro time subtherapeutic. July 20. Heart rate remains controlled. Continue metoprolol and Lanoxin at present dose. Recheck PT/INR in a.m. July 22. Recheck labs in a.m. Qualifiers: Atrial fibrillation type: chronic Qualified Code(s): I48.2 - Chronic atrial fibrillation (4) CKD (chronic kidney disease) stage 3, GFR 30-59 ml/min Current Visit: No Status: Chronic Assessment and plan: July 08. Monitor renal indices. July 10. Recheck labs in a.m. July 14. Recheck labs in a.m. July 17. Creatinine decreased to 1.13. Continue present regimen. (5) Chronic diastolic heart failure Current Visit: No Status: Chronic Assessment and plan: July 08. Continue Lasix. Start Lanoxin. July 17. BN peptide improved to 163. Continue present regimen. (6) T2DM (type 2 diabetes mellitus) Current Visit: No Status: Chronic Assessment and plan: July 08. Hemoglobin A1c was 5.6% on 05/24/2018. Continue Amaryl and Glucophage and do Accu-Cheks with SSI. July 09. Accu-Cheks borderline low at times. Decrease Amaryl. July 12. Accu-Cheks satisfactory. Continue present dose Amaryl and metformin. Qualifiers: Diabetes mellitus custodial insulin use: with custodial use Diabetes mellit complication status: with kidney complications Diabetes mellitus compl ication detail: with chronic kidney disease Chronic kidney disease stage: stage 3 (moderate) Qualified Code(s): E11.22 - Type 2 diabetes mellitus with diabetic chronic kidney disease; N18.3 - Chronic kidney disease, stage 3 (moderate); Z79.4 - alf (current) use of insulin (7) Small bowel obstruction Current Visit: No Status: Acute Assessment and plan: July 08. Status post surgical intervention. Continue wound VAC and emperatriz toring. (8) Anemia Current Visit: No Status: Chronic Assessment and plan: July 08. Anemia testing 06/30/2018 showed iron 26, transferrin saturation 14%, and transferrin 129. Labs today show ferritin > 1500, B12 710, and folate 14.0. Continue trial of ferrous sulfate with ascorbic acid and monitor CBC. July 10. Recheck labs in a.m. July 14. Recheck labs in a.m. July 17. Hemoglobin slightly decreased to 8.4. Continue ferrous sulfate with ascorbic acid. July 20. Hemoglobin improved to 9.4. Continue ferrous sulfate with ascorbic acid. Qualifiers: Anemia type: unspecified type Qualified Code(s): D64.9 - Anemia, un specified (9) Low vitamin D level Current Visit: Yes Status: Acute Assessment and plan: July 09. Vitamin D level low at 12. Start vitamin D supplement. July 14. Continue vitamin D supplement (10) Hypomagnesemia Current Visit: No Status: Acute Assessment and plan: July 14. Continue magnesium oxide. Recheck labs in a.m. July 17. Magnesium level 2.2. Decrease dose of magnesium oxide to 400 mg daily. July 20. Recheck labs in a.m. July 22. Magnesium level stable at 2.1 yesterday. Continue present dose magnesium oxide. (11) Urinary retention Current Visit: Yes Status: Acute Assessment and plan: July 20. Mancini catheter was inserted last week and he was started on Flomax and Proscar. Will trial discontinuation of Mancini catheter. July 22. He had urinary retention requiring reinsertion of Mancini catheter. Continue Flomax and Proscar and follow up with urology. - Subjective Interval history: July 08. He has no new complaints and feels well. July 09. He has no new complaints. He denies pain or dyspnea. July 10. He has no complaints. He feels he is making progress and getting stronger. July 12. He has no new complaints. July 14. He has no new complaints July 17. He has no new complaints and feels improved. July 20. He has no new complaints. July 22. He has no new complaints. - Constitutional Vitals: Temp Pulse Resp BP Pulse Ox 97.7 F 83 16 121/75 99 07/22/18 07:06 07/22/18 07:06 07/22/18 09:37 07/22/18 07:06 07/22/18 09:37 Exam: He is resting comfortably in bed and appears in no acute distress. His affect is cheerful. Extremities show no edema. I reviewed his medications and lab results. Internal Medicine: Result - Labs CBC & Chem 7: 07/20/18 05:17 07/21/18 04:50 - ABG Interpretation ABG results: PT/INR, D-dimer PT 20.5 Seconds (9.4-12.1) H 07/21/18 04:50 Consult Discharge Plan - Plan Referrals: Booker Atkins MD [Primary Care Provider] - 1 week
[2018-07-22] MEDS: *HR* Warfarin 5 MG TABLET PO SCH (18:01)
[2018-07-22] MEDS: Albuterol 2.5 MG/3 ML NEBULIZER IH PRN (21:24)
[2018-07-23 06:10] LABS: INR 2.1; Prothrombin Time 23.4 Seconds (9.4-12.1)
[2018-07-23] MEDS: Ascorbic Acid 500 MG TABLET PO SCH (06:26)
[2018-07-23 07:10] VITALS: BP 124/83
[2018-07-23] MEDS: Insulin LISPRO 300 UNITS/3 ML VIAL SQ SCH ×2 (08:20→13:20)
[2018-07-23] MEDS: *HR* Glimepiride 2 MG TABLET PO SCH (08:21)
[2018-07-23] MEDS: Budesonide/Formoterol 160/4.5 1 PUFF INH IH SCH (10:11)
[2018-07-23] MEDS: Tiotropium 18 MCG inhalation IH SCH (10:11)
[2018-07-23] MEDS: *HR* Metformin 500 MG TABLET PO SCH (10:49)
[2018-07-23] MEDS: *HR* Digoxin 0.125 MG TABLET PO SCH (10:50)
[2018-07-23] MEDS: Cholecalciferol (D-3) 1,000 UNIT TABLET PO SCH (10:50)
[2018-07-23] MEDS: Furosemide 40 MG TABLET PO SCH (10:50)
[2018-07-23] MEDS: Metoprolol XL (24 HR) Succ 50 MG TAB.ER.24H PO SCH (10:50)
[2018-07-23] MEDS: Magnesium Oxide 400 MG TABLET PO SCH (10:50)
[2018-07-23] MEDS: Finasteride 5 MG TABLET PO SCH (10:51)
[2018-07-23] MEDS: Nystatin POWDER 30 GM BOTTLE TP SCH (10:51)
--- NOTE | 2018-07-23 16:04 | Discharge Summary ---
Date of Encounter: 07/23/18 Time of Encounter: 15:50 - Discharge Diagnosis (1) Pneumonia of both lower lobes Priority: Primary Status: Resolved Qualifiers: Pneumonia type: due to unspecified organism Qualified Code(s): J18.1 - Lobar pneumonia, unspecified organism (2) HTN (hypertension) Priority: Secondary Status: Chronic Qualifiers: Hypertension type: essential hypertension Qualified Code(s): I10 - Essential (primary) hypertension (3) Atrial fibrillation Priority: Secondary Status: Chronic Qualifiers: Atrial fibrillation type: chronic Qualified Code(s): I48.2 - Chronic atrial fibrillation (4) CKD (chronic kidney disease) stage 3, GFR 30-59 ml/min Priority: Secondary Status: Chronic (5) Chronic diastolic heart failure Priority: Secondary Status: Chronic (6) T2DM (type 2 diabetes mellitus) Priority: Secondary Status: Chronic Qualifiers: Diabetes mellitus vermin exterminator insulin use: with vermin exterminator use Diabetes mellitus complication status: with kidney complications Diabetes mellitus complication detail: with chronic kidney disease Chronic kidney disease stage: stage 3 (moderate) Qualified Code(s): E11.22 - Type 2 diabetes mellitus with diabetic chronic kidney disease; N18.3 - Chronic kidney disease, stage 3 (moderate); Z79.4 - group home (current) use of insulin (7) Small bowel obstruction Priority: Secondary Status: Acute (8) Anemia Priority: Secondary Status: Chronic Qualifiers: Anemia type: unspecified type Qualified Code(s): D64.9 - Anemia, unspecified (9) Low vitamin D level Priority: Secondary Status: Acute (10) Hypomagnesemia Priority: Secondary Status: Resolved (11) Urinary retention Priority: Secondary Status: Chronic Hospital course: Mr. Cardoso is a 78 year old male who was hospitalized at [facility] June 12-July 06 after presenting with dyspnea with acute on chronic diastolic heart failure and AF with RVR. He was found to have evidence of small bowel obstruction and underwent exploratory celiotomy with partial small bowel resection with anastomosis and primary repair of incisional/umbilical hernia. He underwent additional surgery June 26 for evidence of recurrent small bowel obstruction and had revision of ileocolonic anastomosis. A wound VAC was placed. He was admitted to [facility] swing bed for ongoing care needs. Initial orders were written by the discharging physicians at [facility] I saw him on July 07 and performed a swing bed history and physical. He continued on antibiotic and probiotic through 07/13/2018 for pneumonia. He remained asymptomatic following discontinuation. He developed hypotension so Cardizem was discontinued and Lanoxin was started for rate control. Toprol-XL dose was reduced to 25 mg daily. His blood pressure remained stable on this regimen and he will continue this at discharge. Renal indices remain stable with creatinine 1.18 and estimated GFR greater than 60 on 07/21/2018. INR was satisfactory 2.1 on day of discharge. He will continue Coumadin 5 mg daily. Vitamin D level returned low at 12. He was started on vitamin D supplement and this will be continued at discharge. Amaryl dose was decreased to 1 mg daily because of hypoglycemia. He will continue the lower dose at discharge. He will also continue Glucophage at 500 mg twice a day. Flomax was increased to 0.8 mg daily because of urinary retention. Finasteride was continued. He will follow with urology in a few weeks. Anemia workup was reviewed. He was started on ferrous sulfate with ascorbic acid during his hospital stay. Hemoglobin michelle to 9.4 on 07/20/2018. He will continue these at discharge. The abdominal wall dehiscence area decreased with wound VAC use. He will continue with wound VAC at home upon discharge with home health service monitoring his progress. Hypomagnesemia was noted on 07/11/2018 the level of 1.4. He received supplemental magnesium and magnesium level normalized. He will continue this at discharge. His PCP can monitor labs. He will be discharged home and follow with his PCP within 1 week. - Time Spent with Patient Total time spent providing and/or coordinating discharge services: - Discharge Medications Prescriptions: Albuterol Sulfate [Proair Hfa] 2 puff IH Q4H PRN #1 hfa.aer.ad PRN Reason: Shortness Of Breath Ascorbic Acid [Vitamin C] 500 mg PO DAILY@0630 #30 tablet Budesonide/Formoterol 160/4.5 [Symbicort 160/4.5] 2 puff IH BIDR #2 hfa.aer.ad Digoxin [Lanoxin] 0.125 mg PO DAILY #30 tablet Ferrous Sulfate 325 mg PO DAILY@0630 #30 tablet Furosemide [Lasix] 40 mg PO BID #60 tablet Magnesium Oxide [Mag-Ox] 400 mg PO DAILY #30 tablet Metoprolol XL (24 HR) Succ [Toprol XL] 25 mg PO DAILY #30 tab.er.24h Potassium Chloride 10 meq PO DAILY #30 tab.er.prt Tamsulosin [Flomax] 0.8 mg PO DAILY #60 capsule Home Medications: Finasteride [Proscar] 5 mg PO DAILY #0 07/10/15 [History] Oxygen 2 l NS HS 11/17/16 [History] Aspirin Enteric Coated [Aspirin EC] 81 mg PO DAILY #30 05/12/17 [Rx] Atorvastatin [Lipitor] 40 mg PO HS #30 tab 05/12/17 [Rx] Tiotropium [Spiriva] 18 mcg IH 0700 #30 capsule 08/01/17 [Rx] Albuterol Neb [AccuNeb] 1.25 mg IH Q6H PRN 02/16/18 [History] metFORMIN [Glucophage] 500 mg PO BIDWM 30 Days #60 tablet 04/15/18 [Rx] Warfarin Sodium 5 mg PO 1800 04/24/18 [History] Sennosides/Docusate Sodium [Senna Plus] 2 each PO BID PRN #60 tablet 06/08/18 [Rx] Polyethylene Glycol 3350 [MiraLAX] 17 gm PO DAILY #30 powd.pack 06/10/18 [Rx] Nystatin POWDER [Nystop] 1 appl TP BID bottle 07/06/18 [Rx] Omeprazole [PriLOSEC] 20 mg PO DAILY@0630 30 Days #30 capsule. 07/06/18 [Rx] Albuterol Sulfate [Proair Hfa] 2 puff IH Q4H PRN #1 hfa.aer.ad 07/23/18 [Rx] Ascorbic Acid [Vitamin C] 500 mg PO DAILY@0630 #30 tablet 07/23/18 [Rx] Budesonide/Formoterol 160/4.5 [Symbicort 160/4.5] 2 puff IH BIDR #2 hfa.aer.ad 07/23/18 [Rx] Digoxin [Lanoxin] 0.125 mg PO DAILY #30 tablet 07/23/18 [Rx] Ferrous Sulfate 325 mg PO DAILY@0630 #30 tablet 07/23/18 [Rx] Furosemide [Lasix] 40 mg PO BID #60 tablet 07/23/18 [Rx] Glimepiride [Amaryl] 1 mg PO 0800 tablet 07/23/18 [Rx] Magnesium Oxide [Mag-Ox] 400 mg PO DAILY #30 tablet 07/23/18 [Rx] Metoprolol XL (24 HR) Succ [Toprol XL] 25 mg PO DAILY #30 tab.er.24h 07/23/18 [Rx] Potassium Chloride 10 meq PO DAILY #30 tab.er.prt 07/23/18 [Rx] Tamsulosin [Flomax] 0.8 mg PO DAILY #60 capsule 07/23/18 [Rx] Allergies/Adverse Reactions: Allergy/AdvReac Type Severity Reaction Status Date / Time No Known Allergies Allergy Verified 04/24/18 13:29 Date of admission: 07/06/18 16:53 Primary care physician: Booker Atkins MD Consults: 07/06/18 17:44 Consult to Occupational Therapy [CONS] Routine Comment: Evaluate, develop and implement POC Reason for Consult: Evaluate, develop and implement POC Does patient have active BEDREST order?: No Is patient medically & hemodynamically stable?: Yes Consult to Physical Therapy [CONS] Routine Comment: Evaluate, develop and implement POC Reason for Consult: Evaluate, develop and implement POC Does patient have active BEDREST order?: No Is patient medically & hemodynamically stable?: Yes - Constitutional Vitals: Temp Pulse Resp BP Pulse Ox 98.2 F 91 16 124/83 97 07/23/18 07:05 07/23/18 07:05 07/23/18 10:11 07/23/18 07:05 07/23/18 10:11 - Patient Status Disposition: Home, Self-Care - Discharge Instructions Follow Up With: Ella Thomas, INTERVENTIONAL NURSE [Advanced Practice Nurse] - 1 week - Diet and Activity Activity: as per physical therapy Diet: diabetic diet
--- NOTE | 2018-07-23 16:21 | Physician Discharge Referral ---
Home Health/Hosp Referral Info Transfer to: Home Health Attending Provider: Wilbert Provider in Charge Post Discharge: PCP Kristopher) - Diagnosis (1) Pneumonia of both lower lobes Priority: Primary Status: Resolved (2) HTN (hypertension) Priority: Secondary Status: Chronic (3) Atrial fibrillation Priority: Secondary Status: Chronic (4) CKD (chronic kidney disease) stage 3, GFR 30-59 ml/min Priority: Secondary Status: Chronic (5) Chronic diastolic heart failure Priority: Secondary Status: Chronic (6) T2DM (type 2 diabetes mellitus) Priority: Secondary Status: Chronic (7) Small bowel obstruction Priority: Secondary Status: Acute (8) Anemia Priority: Secondary Status: Chronic (9) Low vitamin D level Priority: Secondary Status: Acute (10) Hypomagnesemia Priority: Secondary Status: Resolved (11) Urinary retention Priority: Secondary Status: Chronic - Respiratory Orders Oxygen / L per min Smoking Cessation: Smoking cessation has been advised. For more information, call the [employer] Quit Line at [phone]. - Dressing/Wound Care Type of Dressing/Treatments w/Frequency: Continue wound VAC with dressing change daily as per wound Center orders. - Diet/Nutrition Diet/Nutrition Orders: No Concentrated Sweets - Activity Activity Orders: Walker - Services Needed Following services are medically necessary services: Nursing, Home Health Aide, Physical Therapy, Occupational Therapy - Transfer Medications Prescriptions: Albuterol Sulfate [Proair Hfa] 2 puff IH Q4H PRN #1 hfa.aer.ad PRN Reason: Shortness Of Breath Ascorbic Acid [Vitamin C] 500 mg PO DAILY@0630 #30 tablet Budesonide/Formoterol 160/4.5 [Symbicort 160/4.5] 2 puff IH BIDR #2 hfa.aer.ad Digoxin [Lanoxin] 0.125 mg PO DAILY #30 tablet Ferrous Sulfate 325 mg PO DAILY@0630 #30 tablet Furosemide [Lasix] 40 mg PO BID #60 tablet Magnesium Oxide [Mag-Ox] 400 mg PO DAILY #30 tablet Metoprolol XL (24 HR) Succ [Toprol XL] 25 mg PO DAILY #30 tab.er.24h Potassium Chloride 10 meq PO DAILY #30 tab.er.prt Tamsulosin [Flomax] 0.8 mg PO DAILY #60 capsule Home Medications: Finasteride [Proscar] 5 mg PO DAILY #0 07/10/15 [History] Oxygen 2 l NS HS 11/17/16 [History] Aspirin Enteric Coated [Aspirin EC] 81 mg PO DAILY #30 05/12/17 [Rx] Atorvastatin [Lipitor] 40 mg PO HS #30 tab 05/12/17 [Rx] Tiotropium [Spiriva] 18 mcg IH 0700 #30 capsule 08/01/17 [Rx] Albuterol Neb [AccuNeb] 1.25 mg IH Q6H PRN 02/16/18 [History] metFORMIN [Glucophage] 500 mg PO BIDWM 30 Days #60 tablet 04/15/18 [Rx] Warfarin Sodium 5 mg PO 1800 04/24/18 [History] Sennosides/Docusate Sodium [Senna Plus] 2 each PO BID PRN #60 tablet 06/08/18 [Rx] Polyethylene Glycol 3350 [MiraLAX] 17 gm PO DAILY #30 powd.pack 06/10/18 [Rx] Nystatin POWDER [Nystop] 1 appl TP BID bottle 07/06/18 [Rx] Omeprazole [PriLOSEC] 20 mg PO DAILY@0630 30 Days #30 capsule.dr 07/06/18 [Rx] Albuterol Sulfate [Proair Hfa] 2 puff IH Q4H PRN #1 hfa.aer.ad 07/23/18 [Rx] Ascorbic Acid [Vitamin C] 500 mg PO DAILY@0630 #30 tablet 07/23/18 [Rx] Budesonide/Formoterol 160/4.5 [Symbicort 160/4.5] 2 puff IH BIDR #2 hfa.aer.ad 07/23/18 [Rx] Digoxin [Lanoxin] 0.125 mg PO DAILY #30 tablet 07/23/18 [Rx] Ferrous Sulfate 325 mg PO DAILY@0630 #30 tablet 07/23/18 [Rx] Furosemide [Lasix] 40 mg PO BID #60 tablet 07/23/18 [Rx] Glimepiride [Amaryl] 1 mg PO 0800 tablet 07/23/18 [Rx] Magnesium Oxide [Mag-Ox] 400 mg PO DAILY #30 tablet 07/23/18 [Rx] Metoprolol XL (24 HR) Succ [Toprol XL] 25 mg PO DAILY #30 tab.er.24h 07/23/18 [Rx] Potassium Chloride 10 meq PO DAILY #30 tab.er.prt 07/23/18 [Rx] Tamsulosin [Flomax] 0.8 mg PO DAILY #60 capsule 07/23/18 [Rx] Allergies/Adverse Reactions: Allergy/AdvReac Type Severity Reaction Status Date / Time No Known Allergies Allergy Verified 04/24/18 13:29 Certification: Further, I certify that my clinical findings support that this patient is homebound (i.e. absences from home require considerable and taxing effort and are for medical reasons or christianity services or infrequently or short duration when for other reasons) because: Homebound Reason: Leaving home requires considerable and taxing effort due to condition (Abdominal surgery with wound VAC in place) Attestation: My signature below is to certify that this patient is under my care and that I, or nurse practitioner, or a physician's assistant warehouse manager working with me, has a [id number] encounter with this patient.
== END 2018-07-23 17:25 | disposition home or self-care (01) | DRG 949 ==
LOC: INPPIK 16:53
PROVIDERS: ADMIT Internal Medicine; ATTEND Internal Medicine

== ENCOUNTER 2018-10-14 15:05 | Inpatient (IN) ==
[2018-10-14] MEDS ORDERED: Levalbuterol Neb 1.25 MG/3 ML IH PRN (16:12)
[2018-10-14] MEDS ORDERED: Albuterol 2.5 MG/3 ML NEBULIZER IH PRN (16:16)
[2018-10-14] MEDS: *HR* LORazepam 0.5 MG TABLET PO PRN ×2 (17:17→19:36)
[2018-10-14] MEDS: predniSONE 20 MG TABLET PO SCH (17:19)
--- NOTE | 2018-10-14 17:29 | Internal Med History&Physical ---
Date of Encounter: 10/14/18 Time of Encounter: 16:50 Assessment and Plan (1) COPD with exacerbation Current visit: No Status: Acute Chest x-ray and labs have been ordered to further evaluate. Continue Symbicort, Symbicort, and other inhalers for now. (2) Pneumonia Current visit: No Status: Acute Chest x-ray and CBC will be ordered to further evaluate Qualifiers: Pneumonia type: due to unspecified organism Laterality: left Lung location: lower lobe of lung Qualified Code(s): J18.1 - Lobar pneumonia, unspecified organism (3) Atrial fibrillation Current visit: No Status: Chronic Rate controlled. Continue Eliquis, Lanoxin, Cardizem, and Toprol. Qualifiers: Atrial fibrillation type: chronic Qualified Code(s): I48.2 - Chronic atrial fibrillation (4) Pleural effusion Current visit: No Status: Chronic Recheck chest x-ray. (5) Anemia Current visit: No Status: Chronic Workup July 2018 showed no factor deficiency. Likely due to chronic disease. Monitor CBC. Qualifiers: Anemia type: unspecified type Qualified Code(s): D64.9 - Anemia, unspecified (6) Low vitamin D level Current visit: No Status: Acute Vitamin D level was 12 on 07/08/2018. Recheck in a.m. Internal Medicine - H&P: HPI Chief complaint: Dyspnea Admitted From: Direct Admit Plans for Post Hospital Care: Hospice - Home History of present illness: Mr. Cardoso is a 78 year old male who was hospitalized at [facility] October 07- with dyspnea felt to be due to pneumonia. Organism was not isolated. Blood culture showed no growth. He was treated empirically with IV Levaquin and vancomycin during hospitalization and discharged home on Augmentin twice a day for 5 additional days. Shortly after arriving home his dyspnea worsened. Hospice personnel were called and felt his symptoms were not controlled. They requested GIP admission at [facility]. The patient denies any pain at this time. He was hospitalized in swing bed at [facility] July 2018 following [facility] discharge for pneumonia. He smoked from age 20- 51 up to 1-1/2 packs per day. He has a diagnosis COPD and uses oxygen essentially 24/7. He has JEFFY and uses CPAP/BiPAP at home. Cardiovascular history is significant for hypertension and chronic atrial fibrillation. Echocardiogram 10/03/2018 showed LVEF of 50-55%. Previous echocardiogram on 02/22/2018 showed LVEF of 50% with indeterminate diastolic function due to atrial fibrillation. The interventricular septum and posterior wall thickness measurements were 1.20 and 1.26 cm respectively. There was LAE at 4.90 cm. there was reported dilated right atrium without measurement recorded. 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 LVEF was reported to be 45% at time of heart cath. He denies DVT or pulmonary embolus. Past Med Surg Social Fam HX - Past Medical History Medical history: asthma, atrial fibrillation, cancer, CHF, COPD, hypertension, malignancy Additional medical history: kidney cancer Psychiatric history: no psych history - Past Surgical History Surgical History: appendectomy, cholecystectomy, other Additional surgical history: nephrectomy left,. abdominal surgery - Social History Smoking Status: Former smoker Smokeless Tobacco Status: No Alcohol use: none Drug use: none - Family History Brother Living Status: Hx Family Cardiac Disorders: Yes (60yo [place]) Father Living Status: Hx Family Cardiac Disorders: Yes Hx Family Cancer: Yes Hx Family Neurologic Disorders: Yes (parkinsons) Mother Living Status: Hx Family Cardiac Disorders: Yes Hx Family Respiratory Disorders: Yes (asthma) Hx Family Cancer: Yes Hx Family GI Disorders: No Hx Family Endocrine Disorder: No Hx Family Neuromuscular Disorders: No Hx Family Neurologic Disorders: No Hx Family HEENT Disorders: No Hx Family Autoimmune Disorders: No Internal Medicine - H&P: Meds Finasteride [Proscar] 5 mg PO DAILY #0 07/10/15 [History] Oxygen 2 l NS CONT 11/17/16 [History] Tiotropium [Spiriva] 18 mcg IH 0700 #30 capsule 08/01/17 [Rx] Albuterol Sulfate [Proair Hfa] 2 puff IH Q4H PRN #1 hfa.aer.ad 07/23/18 [Rx] Ascorbic Acid [Vitamin C] 500 mg PO DAILY@0630 #30 tablet 07/23/18 [Rx] Digoxin [Lanoxin] 0.125 mg PO DAILY #30 tablet 07/23/18 [Rx] Ferrous Sulfate 325 mg PO DAILY@0630 #30 tablet 07/23/18 [Rx] Magnesium Oxide [Mag-Ox] 400 mg PO DAILY #30 tablet 07/23/18 [Rx] Potassium Chloride 10 meq PO DAILY #30 tab.er.prt 07/23/18 [Rx] Tamsulosin [Flomax] 0.8 mg PO DAILY #60 capsule 07/23/18 [Rx] Apixaban [Eliquis] 5 mg PO BID 09/10/18 [History] Aspirin 325 mg PO DAILY 09/10/18 [History] Budesonide/Formoterol 160/4.5 [Symbicort 160/4.5] 2 puff IH BID 09/10/18 [History] Furosemide [Lasix] 40 mg PO DAILY 09/10/18 [History] Levalbuterol Neb [Xopenex Neb] 1.25 mg IH [id number] PRN 30 Days #180 vial.neb 09/16/18 [Rx] Atorvastatin [Lipitor] 40 mg PO DAILY 10/01/18 [History] Albuterol Neb [AccuNeb] 1.25 mg IH Q6H PRN 10/09/18 [History] Glimepiride [Amaryl] 2 mg PO DAILY@0800 10/09/18 [History] Amoxicillin/Clavulanate [Augmentin] 875 mg PO BIDWM #10 tablet 10/12/18 [Rx] Diltiazem SR (12hr) [Cardizem SR] 90 mg PO BID #60 cap.er.12h 10/12/18 [Rx] Metoprolol XL (24 HR) Succ [Toprol Xl] 100 mg PO DAILY #30 tab.er.24h 10/12/18 [Rx] predniSONE [PredniSONE] 40 mg PO DAILY #11 tablet 10/12/18 [Rx] Allergy/AdvReac Type Severity Reaction Status Date / Time No Known Allergies Allergy Verified 10/01/18 14:10 All Systems PM: A 10-system review of systems was performed and is negative for pertinent findings except as documented above in the HPI. Review of systems: Review of systems from his July 2018 [facility] swing bed hospitalization were reviewed and revised as below. Gen.: His weight has decreased from 112 kg on 07/11/2015 to 109.1 kg on admission to [facility] swing bed 07/06/2018 to 106.594 kg today. Cardiovascular: As per history of present illness Respiratory: As per history of present illness GI: He had remote cholecystectomy. He had 2 recent surgery for small bowel obstruction. He denies other disorders of his liver or exocrine pancreas : He had renal cell cancer with left nephrectomy approximately 2011. He believes he is cancer free. He has BPH. He denies other kidney or bladder disorders. Neurologic: He denies large distribution strokes or seizures. Endocrine: He has diagnoses of DM 2. Hemoglobin A1c was 5.6% on 05/24/2018. He is on metformin and Amaryl. He denies hyperlipidemia or thyroid disease. Hematology/oncology: He had renal cell cancer as per above. He denies other internal malignancies. He has anemia with testing 06/30/2018 showing iron 26, transferrin saturation 14%, and transferrin 129. Ferritin was> 1500 on 07/08/2018. B12 and folate were normal at 710 and 14.0 respectively on 12/2017. Psychiatric: He denies anxiety depression or other mental health issues [place] skeletal: He denies arthritis gout or other bone joint or muscle disorders.He has multiple subcutaneous lipomas. - Other Additional findings: Gen.: He is a well-developed well-nourished male lying in bed who appears dyspneic HEENT: Head is atraumatic and normal systolic. Eyes: EOMI. There is no scleral icterus. Mouth: Mucosa is moist. Neck: Supple and nontender. There is no thyromegaly or adenopathy noted. Heart: Irregularly irregular without murmurs or gallops. Tones are soft. Lungs: He has diminished breath sounds diffusely. No wheezes or crackles are heard. Abdomen: He has a large abdomen. No masses or guarding are noted. Extremities: He has 1-2+ edema of the dorsal feet and lower anterior shins bilaterally. Dorsalis pedis and posttibial pulses are not palpable. He has innumerable subcutaneous lipomas of his arms as well as torso. Neurologic: Mental status: He is able to answer questions but is dyspneic and not conversational. Cranial nerves: Smile is symmetric. Forehead wrinkles bilaterally. Tongue protrudes midline. EOMI. Motor: There is no pronator drift. Cerebellar: Finger to nose is intact bilaterally. Skin: Warm and dry. He has ecchymoses of various stages on his arms.
[2018-10-14 17:48] LABS: Basophils % 0.1 %; Eosinophils % 0.1 %; Hematocrit 42.3 % (37.5-50.1); Hemoglobin 13.4 g/dL (12.9-16.9); Immature Granulocytes % 0.6 % (0-4); Lymphocytes # 0.3 K/mcL (0.6-4.6); Lymphocytes % 3.2 %; Mean Corpuscular HGB Conc 31.7 g/dL (31.6-35.5); Mean Corpuscular Hemoglobin 28.2 pg (28.0-33.3); Mean Corpuscular Volume 88.9 fL (83.0-100.0); Monocytes # 0.1 K/mcL (0.0-1.3); Monocytes % 1.2 %; Neutrophils # 8.8 K/mcL (1.6-8.9); Platelet Count 161 K/mcL (140-400); Red Blood Count 4.76 M/mcL (4.19-5.50); Red Cell Distribution Width 14.3 % (11.5-14.5); Segmented Neutrophils % 94.8 %
[2018-10-14 18:04] LABS: Alanine Aminotransferase 81 Units/L (7-52); Albumin 3.6 g/dL (3.5-5.7); Albumin/Globulin Ratio 1.2 (1.1-2.2); Alkaline Phosphatase 138 Units/L (34-104); Aspartate Amino Transferase 72 Units/L (13-39); BUN/Creatinine Ratio 21 (6-26); Bilirubin,Total 0.4 mg/dL (0.3-1.0); Blood Urea Nitrogen 22 mg/dL (8-23); Calcium 8.8 mg/dL (8.6-10.3); Carbon Dioxide 36 mEq/L (23-29); Chloride 96 mEq/L (98-107); Globulin 3.1 g/dL (2.4-3.5); Glucose 217 mg/dL (70-105); Osmolality,Calculated 296 (280-300); Potassium 4.3 mEq/L (3.5-5.1); Sodium 138 mEq/L (136-145); Total Protein 6.7 g/dL (6.4-8.9); eGFR For Non-African Americans > 60 (> 60)
[2018-10-14] MEDS: Furosemide 40 MG/4 ML VIAL IVP SCH (19:36)
[2018-10-14] MEDS: Apixaban 5 MG TABLET PO SCH (19:36)
[2018-10-14] MEDS: Diltiazem SR (12hr) 90 MG CAPSULE PO SCH (19:38)
[2018-10-14] MEDS: Budesonide/Formoterol 160/4.5 1 PUFF INH IH SCH (22:45)
[2018-10-15] MEDS: Ascorbic Acid 500 MG TABLET PO SCH (06:05)
[2018-10-15] MEDS: Tiotropium 18 MCG inhalation IH SCH (08:29)
[2018-10-15] MEDS: Apixaban 5 MG TABLET PO SCH ×2 (08:36→20:42)
[2018-10-15] MEDS: Aspirin 325 MG TABLET PO SCH (08:37)
[2018-10-15] MEDS: predniSONE 20 MG TABLET PO SCH (08:37)
[2018-10-15] MEDS: *HR* Digoxin 0.125 MG TABLET PO SCH (08:37)
[2018-10-15] MEDS: Finasteride 5 MG TABLET PO SCH (08:37)
[2018-10-15] MEDS: Magnesium Oxide 400 MG TABLET PO SCH (08:37)
[2018-10-15] MEDS: *HR* Glimepiride 2 MG TABLET PO SCH (08:38)
[2018-10-15] MEDS: Metoprolol XL (24 HR) Succ 50 MG TAB.ER.24H PO SCH (08:38)
[2018-10-15] MEDS: Furosemide 40 MG/4 ML VIAL IVP SCH ×2 (08:38→16:26)
[2018-10-15] MEDS: Diltiazem SR (12hr) 90 MG CAPSULE PO SCH ×2 (08:40→20:42)
[2018-10-15] MEDS ORDERED: Furosemide 40 MG TABLET PO SCH (09:00)
[2018-10-15] MEDS: Budesonide/Formoterol 160/4.5 1 PUFF INH IH SCH ×2 (10:37→20:05)
[2018-10-15] MEDS: Albuterol 2.5 MG/3 ML NEBULIZER IH PRN ×2 (13:49→20:04)
--- NOTE | 2018-10-15 15:04 | Internal Med Progress Note ---
Date of Encounter: 10/15/18 Time of Encounter: 14:55 - Assessment and plan (1) COPD with exacerbation Current Visit: No Status: Acute Assessment and plan: October 15. Continue Symbicort, Spiriva, and other inhalers. (2) Pneumonia Current Visit: No Status: Acute Assessment and plan: October 15. Chest x-ray shows no obvious infiltrate. WBC was normal yesterday but left shift present. Recheck labs in a.m. Qualifiers: Pneumonia type: due to unspecified organism Laterality: left Lung location: lower lobe of lung Qualified Code(s): J18.1 - Lobar pneumonia, unspecified organism (3) Atrial fibrillation Current Visit: No Status: Chronic Assessment and plan: October 15. Rate controlled. Continue Eliquis, Lanoxin, Cardizem, and Toprol-XL. Qualifiers: Atrial fibrillation type: chronic Qualified Code(s): I48.2 - Chronic atrial fibrillation (4) Pleural effusion Current Visit: No Status: Chronic Assessment and plan: October 15. Trivial left lung effusion present now. Continue present regimen. (5) Anemia Current Visit: No Status: Chronic Assessment and plan: October 15. Hemoglobin normal at 13.4. Monitor CBC periodically. Qualifiers: Anemia type: unspecified type Qualified Code(s): D64.9 - Anemia, unspecified (6) Low vitamin D level Current Visit: No Status: Acute Assessment and plan: October 15. Check vitamin D level and other labs in a.m. - Subjective Interval history: October 15. He has no new complaints and feels better. Reports his dyspnea and edema have lessened. - Constitutional Vitals: Temp Pulse Resp BP Pulse Ox 97.4 F L 107 20 160/84 96 10/15/18 06:47 10/15/18 06:47 10/15/18 13:49 10/15/18 06:47 10/15/18 13:49 Exam: He is sitting in a chair at bedside resting comfortably. His leg edema shows decrease from yesterday. He does not appears dyspneic. I reviewed his medications and lab results. Internal Medicine: Result - Labs CBC & Chem 7: 10/14/18 17:42 10/14/18 17:42 Labs: Short CBC 10/14/18 Range/Units 17:42 WBC 9.3 (4.3-11.1) K/mcL Hgb 13.4 (12.9-16.9) g/dL Hct 42.3 (37.5-50.1) % Plt Count 161 (140-400) K/mcL Neutrophils # 8.8 (1.6-8.9) K/mcL BMP 10/14/18 17:42 Sodium 138 Potassium 4.3 Chloride 96 L Carbon Dioxide 36 H BUN 22 Creatinine 1.05 Glucose 217 H Calcium 8.8 Liver Function 10/14/18 Range/Units 17:42 Total Bilirubin 0.4 (0.3-1.0) mg/dL AST 72 H (13-39) Units/L ALT 81 H (7-52) Units/L Alkaline Phosphatase 138 H (34-104) Units/L Albumin 3.6 (3.5-5.7) g/dL - Impressions Impressions Chest X-Ray 10/14/18 17:19 IMPRESSION: Small left pleural effusion with fluctuating basilar opacities favored to represent atelectasis. Background mild edema versus airway inflammation. D/ / Juan Hutton / Juan Hutton Interpreting Provider: Juan Hutton Consult Discharge Plan - Plan Referrals: Ronald Wheat MD [Primary Care Provider] - 1 week
[2018-10-16 06:24] LABS: Basophils % 0.1 %; Eosinophils % 0.1 %; Hematocrit 38.8 % (37.5-50.1); Hemoglobin 12.2 g/dL (12.9-16.9); Immature Granulocytes % 0.4 % (0-4); Lymphocytes # 1.1 K/mcL (0.6-4.6); Lymphocytes % 12.9 %; Mean Corpuscular HGB Conc 31.4 g/dL (31.6-35.5); Mean Corpuscular Hemoglobin 27.9 pg (28.0-33.3); Mean Corpuscular Volume 88.8 fL (83.0-100.0); Mean Platelet Volume 12.2 fL (9.4-12.4); Monocytes # 0.5 K/mcL (0.0-1.3); Monocytes % 6.2 %; Neutrophils # 6.8 K/mcL (1.6-8.9); Platelet Count 134 K/mcL (140-400); Red Blood Count 4.37 M/mcL (4.19-5.50); Red Cell Distribution Width 14.3 % (11.5-14.5); Segmented Neutrophils % 80.3 %
[2018-10-16 06:30] LABS: BUN/Creatinine Ratio 24 (6-26); Blood Urea Nitrogen 24 mg/dL (8-23); Calcium 8.6 mg/dL (8.6-10.3); Carbon Dioxide 37 mEq/L (23-29); Chloride 99 mEq/L (98-107); Glucose 91 mg/dL (70-105); Osmolality,Calculated 298 (280-300); Potassium 3.5 mEq/L (3.5-5.1); Sodium 142 mEq/L (136-145); eGFR For Non-African Americans > 60 (> 60)
[2018-10-16] MEDS: Ascorbic Acid 500 MG TABLET PO SCH (06:42)
[2018-10-16 07:20] VITALS: BP 166/107
[2018-10-16] MEDS: Albuterol 2.5 MG/3 ML NEBULIZER IH PRN (08:45)
[2018-10-16] MEDS: Tiotropium 18 MCG inhalation IH SCH (08:45)
--- NOTE | 2018-10-16 10:25 | Discharge Summary ---
Orders not resulted at time of discharge: Pending orders 10/16/18 05:29 Vitamin D 25 Hydroxy AM 0400 Date of Encounter: 10/16/18 Time of Encounter: 10:15 - Discharge Diagnosis (1) COPD with exacerbation Priority: Primary Status: Acute (2) Pneumonia Priority: Secondary Status: Acute Qualifiers: Pneumonia type: due to unspecified organism Laterality: left Lung location: lower lobe of lung Qualified Code(s): J18.1 - Lobar pneumonia, unspecified organism (3) Atrial fibrillation Priority: Secondary Status: Chronic Qualifiers: Atrial fibrillation type: chronic Qualified Code(s): I48.2 - Chronic atrial fibrillation (4) Pleural effusion Priority: Secondary Status: Chronic (5) Anemia Priority: Secondary Status: Chronic Qualifiers: Anemia type: unspecified type Qualified Code(s): D64.9 - Anemia, unspecified (6) Low vitamin D level Priority: Secondary Status: Acute Hospital course: Mr. Cardoso is a 78 year old male who was hospitalized at [facility] October 07 with dyspnea felt to be due to pneumonia. Organism was not isolated. Blood culture showed no growth. He was treated empirically with IV Levaquin and vancomycin during hospitalization and discharged home on Augmentin twice a day for 5 additional days. Shortly after arriving home his dyspnea worsened. Hospice personnel were called and felt his symptoms were not controlled. They requested GIP admission at [facility]. I saw him on October 14 and performed a history and physical. Chest x-ray showed no evidence of infiltrate. He continued on Augmentin during his hospital stay. It will be discontinued at discharge. CBC was normal at 8.4 on day of discharge with decrease in left shift on differential. IV Lasix was given a dose of 40 mg twice a day. BN peptide was normal at 81 on day of discharge. He will continue with oral Lasix 40 mg twice a day for 7 days at discharge. His PCP can determine if a reduced dose can then be resumed. On October 16 he was stable for discharge home. He will follow with his PCP within 1 week. Hospice services will be continued. - Time Spent with Patient Total time spent providing and/or coordinating discharge services: - Discharge Medications Prescriptions: New Furosemide [Lasix] 40 mg PO BID 7 Days tablet Continue Finasteride [Proscar] 5 mg PO DAILY #0 Oxygen 2 l NS CONT Tiotropium [Spiriva] 18 mcg IH 0700 #30 capsule Aspirin 325 mg PO DAILY Budesonide/Formoterol 160/4.5 [Symbicort 160/4.5] 2 puff IH BID Apixaban [Eliquis] 5 mg PO BID Atorvastatin [Lipitor] 40 mg PO DAILY Glimepiride [Amaryl] 2 mg PO DAILY@0800 Albuterol Neb [AccuNeb] 1.25 mg IH Q6H PRN PRN Reason: Shortness Of Breath Diltiazem SR (12hr) [Cardizem SR] 90 mg PO BID #60 cap.er.12h Metoprolol XL (24 HR) Succ [Toprol Xl] 100 mg PO DAILY #30 tab.er.24h predniSONE [PredniSONE] 40 mg PO DAILY #11 tablet Ascorbic Acid [Vitamin C] 500 mg PO DAILY@0630 #30 tablet Digoxin [Lanoxin] 0.125 mg PO DAILY #30 tablet Ferrous Sulfate 325 mg PO DAILY@0630 #30 tablet Magnesium Oxide [Mag-Ox] 400 mg PO DAILY #30 tablet Potassium Chloride 10 meq PO DAILY #30 tab.er.prt Tamsulosin [Flomax] 0.8 mg PO DAILY #60 capsule Albuterol Sulfate [Proair Hfa] 2 puff IH Q4H PRN #1 hfa.aer.ad PRN Reason: Shortness Of Breath Discontinued Furosemide [Lasix] 40 mg PO DAILY Amoxicillin/Clavulanate [Augmentin] 875 mg PO BIDWM #10 tablet Home Medications: Finasteride [Proscar] 5 mg PO DAILY #0 07/10/15 [History] Oxygen 2 l NS CONT 11/17/16 [History] Tiotropium [Spiriva] 18 mcg IH 0700 #30 capsule 08/01/17 [Rx] Albuterol Sulfate [Proair Hfa] 2 puff IH Q4H PRN #1 hfa.aer.ad 07/23/18 [Rx] Ascorbic Acid [Vitamin C] 500 mg PO DAILY@0630 #30 tablet 07/23/18 [Rx] Digoxin [Lanoxin] 0.125 mg PO DAILY #30 tablet 07/23/18 [Rx] Ferrous Sulfate 325 mg PO DAILY@0630 #30 tablet 07/23/18 [Rx] Magnesium Oxide [Mag-Ox] 400 mg PO DAILY #30 tablet 07/23/18 [Rx] Potassium Chloride 10 meq PO DAILY #30 tab.er.prt 07/23/18 [Rx] Tamsulosin [Flomax] 0.8 mg PO DAILY #60 capsule 07/23/18 [Rx] Apixaban [Eliquis] 5 mg PO BID 09/10/18 [History] Aspirin 325 mg PO DAILY 09/10/18 [History] Budesonide/Formoterol 160/4.5 [Symbicort 160/4.5] 2 puff IH BID 09/10/18 [History] Atorvastatin [Lipitor] 40 mg PO DAILY 10/01/18 [History] Albuterol Neb [AccuNeb] 1.25 mg IH Q6H PRN 10/09/18 [History] Glimepiride [Amaryl] 2 mg PO DAILY@0800 10/09/18 [History] Diltiazem SR (12hr) [Cardizem SR] 90 mg PO BID #60 cap.er.12h 10/12/18 [Rx] Metoprolol XL (24 HR) Succ [Toprol Xl] 100 mg PO DAILY #30 tab.er.24h 10/12/18 [Rx] predniSONE [PredniSONE] 40 mg PO DAILY #11 tablet 10/12/18 [Rx] Furosemide [Lasix] 40 mg PO BID 7 Days tablet 10/16/18 [Rx] Allergies/Adverse Reactions: Allergy/AdvReac Type Severity Reaction Status Date / Time No Known Allergies Allergy Verified 10/01/18 14:10 Date of admission: 10/14/18 15:43 Primary care physician: Ronald Wheat MD - Constitutional Vitals: Temp Pulse Resp BP Pulse Ox 98.5 F 103 16 166/107 98 10/16/18 07:19 10/16/18 07:19 10/16/18 08:45 10/16/18 07:19 10/16/18 08:45 - Patient Status Disposition: Hospice - Home - Discharge Instructions Follow Up With: Ronald Wheat MD [Primary Care Provider] - 1 week - Diet and Activity Activity: resume usual activities as tolerated Diet: advance to your usual diet
[2018-10-16] MEDS: predniSONE 20 MG TABLET PO SCH (10:33)
[2018-10-16] MEDS: Aspirin 325 MG TABLET PO SCH (10:34)
[2018-10-16] MEDS: Metoprolol XL (24 HR) Succ 50 MG TAB.ER.24H PO SCH (10:34)
[2018-10-16] MEDS: *HR* Glimepiride 2 MG TABLET PO SCH (10:34)
[2018-10-16] MEDS: Apixaban 5 MG TABLET PO SCH (10:34)
[2018-10-16] MEDS: Magnesium Oxide 400 MG TABLET PO SCH (10:34)
[2018-10-16] MEDS: *HR* Digoxin 0.125 MG TABLET PO SCH (10:34)
[2018-10-16] MEDS: Finasteride 5 MG TABLET PO SCH (10:34)
[2018-10-16] MEDS: Furosemide 40 MG/4 ML VIAL IVP SCH (10:35)
[2018-10-16] MEDS: Budesonide/Formoterol 160/4.5 1 PUFF INH IH SCH (10:36)
[2018-10-16] MEDS: Diltiazem SR (12hr) 90 MG CAPSULE PO SCH (10:36)
[2018-10-17] MEDS ORDERED: predniSONE 20 MG TABLET PO SCH (09:00)
[2018-10-20] MEDS ORDERED: predniSONE 20 MG TABLET PO SCH (09:00)
[2018-10-23] MEDS ORDERED: predniSONE 20 MG TABLET PO SCH (09:00)
== END 2018-10-16 15:00 | disposition hospice, home (50) | DRG 190 ==
LOC: INPPIK 15:43
PROVIDERS: ADMIT Internal Medicine; ATTEND Internal Medicine